=== PATIENT | male | born 1975 | race Caucasian/White ===

== ENCOUNTER 2021-09-13 04:17 | Inpatient (IN) ==
[2021-09-13] MEDS ORDERED: FAMOTIDINE 20MG IV PUSH 20 MG/5 ML SYR IV STA (04:31)
[2021-09-13] MEDS ORDERED: ONDANSETRON INJ 2 MG/ML 2 ML VIAL IV STA (04:31)
[2021-09-13] MEDS ORDERED: cefTRIAXone SODIUM 2,000 MG/70 ML BAG IV STA (04:32)
[2021-09-13] MEDS ORDERED: SODIUM CHLORIDE 0.9% 250 ML IV PRN ×7 (04:33→12:39)
--- NOTE | 2021-09-13 04:37 | Emergency Department Note ---
Impression & Plan Acute GI bleeding ADMIT to ICU ED Provider Note HPI: The patient is a 46-year-old male with unknown past medical history, presents emergency department with concern for GI bleeding. Patient arrives via EMS. He is reportedly intoxicated. Patient reportedly was found down in his apartment by his girlfriend, he had been surrounded by dark-colored loose stool, had also had an episode of hematemesis prior to this according to EMS report. On arrival to the ED the patient is alert to verbal stimuli, he does appear intoxicated, he is unable to provide me much history, he is tachypneic but saturating well on room air on arrival. He is noted to be hypotensive on arrival. Per EMS he was in the 80s systolic, he was given about a 500 cc bolus of normal saline prior to ar rival to the ED. ROS: -GI: Concern for GI bleed -Neuro: Altered mental status -MSK: Reported fall, unwitnessed *10 point review systems was conducted and is otherwise negative unless stated above *Outpatient medications and allergy history reviewed PE: General: Alert to verbal stimuli, patient is cool to the touch, disheveled appearing HEENT: Normocephalic, there is dried blood within the oral cavity, dried blood at the bilateral naris without any evidence of active bleeding Eyes: Extraocular eye movement is intact, no scleral erythema, there is scleral icterus bilaterally Pulmonary: Clear to auscultation bilaterally, no wheezing, there is tachypnea Cardio: Regular rate and rhythm GI: Abdomen is soft, nontender, abdomen is distended : No suprapubic tenderness MSK: No evidence of trauma or malformation of the extremities, no edema Skin: No evidence of rash, slight jaundiced appearance Neuro: Alert to verbal stimuli, no focal deficits Psychiatric: N/A pediatric speech therapist: - An order was placed for continuous cardiac monitoring. - Patient was noted to be in sinus rhythm with rate of 90. EKG: Rate: 96 Rhythm: Normal sinus rhythm Intervals: QTC 565 ms, QRS 102 ms, MD interval [address] changes: No ST elevation Time: 0439 Endotracheal intubation: Rapid sequence intubation medications: Etomidate, succinylcholine Utilizing glide scope sized [3] glide scope blade was advanced to the vallecula with visualization of the vocal cords. Moderate amount of blood is noted to be pooling inferiorly within the oropharynx. Size [7.5] endotracheal tube was advanced utilizing glide scope stylette and passed through the vocal cords under direct visualization. ET tube balloon was inflated. Appropriate color change was achieved with capnography. Breath sounds auscultated bilaterally following placement of the ET tube. Chest x-ray was ordered, confirms appropriate placement of endotracheal tube. Central line placement: Consent: Emergent Site to the right femoral vein was sterilely prepped and draped. Under ultrasound guidance utilizing sterile technique the deep vein was identified, needle was advanced with flash of dark venous, nonpulsatile, blood achieved. Guidewire was advanced through the needle, needle was subsequently removed. Dilator was placed over the guidewire and then subsequently removed under direct pressure. Triple-lumen central venous catheter was then threaded over the guidewire. Guidewire was subsequently withdrawn. All 3 ports of the triple-lumen catheter were flushed with normal saline with appropriate return of dark venous blood through all 3 ports. Catheter was secured in place utilizing sutures. Patient tolerated the procedure well Medical Decision Making: Patient presented to the emergency department with altered mental status, he was found down earlier this evening by his girlfriend. I did speak with his girlfriend, Margo, on the phone, she tells me that the patient went to bed around 10 PM, at which time he was in his normal state of health. The patient's girlfriend then tells me that the patient apparently fell down, this was unwitnessed, she heard him in the hallway and then went out to find him covered in dark stool, there was some blood surrounding him as well. He seemed altered and was not making sense and therefore she contacted EMS for transport to the ED. On arrival to the ED the patient is hypotensive, he is able to speak to me but he is confused. He does not exhibit any focal deficits. He has dried blood in the mouth and then the bilateral naris. He is saturating well on room air on arrival. Given hypotension large-bore access was obtained bilaterally, patient was initiated on IV fluid boluses, lab work-up initiated, CT imaging of the head as well as CT imaging of the chest, abdomen, and pelvis are ordered. Patient is significantly hypotensive in the 50s systolic and therefore type O- blood was ordered via phone call to the lab for emergent transfer. Lab work was obtained and does show evidence of anemia of 9.8, multiple metabolic derangements including lactic acid greater than 16, bilirubin greater than 14, AST of 17,000, sodium of 120. Troponin is also elevated at 0.33, EKG shows some mild ST depression in leads V2 and V3 without evidence of ST elevation. I suspect this is demand ischemia in the setting of upper GI bleed, will hold off on any aspirin or heparin therapy at this time given the patient's acute bleeding. Patient was ordered 4 units packed red blood cells, FFP, o ctreotide bolus and drip, Protonix bolus and drip, 2 g of IV ceftriaxone. Given the uncertain nature of the patient's fall, CT imaging of the head as well as the abdomen and pelvis and chest were ordered to rule out traumatic pathology, CT imaging of the head does not show any evidence of intracranial bleeding, CT imaging of the chest does not show any evidence of fractures or pneumothorax. CT imaging of the abdomen pelvis showed some distention of the stomach and of the large bowel that appears fluid-filled. I suspect this is likely hemorrhage. While in the ED right femoral triple-lumen catheter was established for access given multiple medications/drips, please see procedure note for details. The patient was transported back from [place] he became increasingly altered, breathing became agonal, patient's saturations dropped into the 70s and therefore intubation was performed emergently. Please see procedure note for details. I did discuss the case twice via phone call with Dr. Hernandez of on-call gastroenterology for unassigned, he was made aware of the unstable nature of the patient, states that resuscitation should be continued and he will plan for endoscopy urgently. Hospitalist service for [facility] group was consulted from the ED for admission to the ICU, case was also discussed with the ICU attending, Dr. Schaefer, he was updated and aware of the admission and did evaluate the patient at the bedside in the ED. I was able to contact the patient's girlfriend again who he lives with here locally, Margo Buckley, who was updated and aware of the patient's critical condition and admission. I was also able to speak with the patient's father, Ezequiel Crouch, who was also updated and aware of the patient's critical condition. Relevant phone numbers will be listed below. Margo Buckley (partner, local contact) : [phone] Ezequiel Crouch (Father) : [phone] * CRITICAL CARE TIME: ( 55 ) minutes -Time spent independent of procedures in stabilization of acute upper GI bleed requiring multiple units of packed red blood cells for hypotension and active GI bleeding, initiation of multiple drips including octreotide, Protonix, initiation of IV antibiotics for upper GI bleeding, discussion with other physicians including gastroenterology and intensive care, range of motion Diagnosis: 1. Acute upper GI bleed 2. Altered mental status 3. lactic acidosis 4. respiratory failure 5. Anemia 6. Hyponatremia Disposition: Admission to ICU Bebeto Barker DO Emergency Medicine Past Med/Surg History Social History Smoking Status: Current some day smoker Preferred Language: Danish Feels Safe at Home: Yes Results & Data (ED) Vital Signs Vital Signs - 24 hr 09/13/21 04:21 09/13/21 04:31 09/13/21 04:36 Temperature 34.9 C L Temperature Source Rectal Pulse Rate 92 H 99 H 95 H Pulse Rate from SpO2 Sensor 99 H 95 H Pulse Rhythm Regular Pulse Strength Normal Respiratory Rate 33 H 26 H 31 H Respiratory Effort / Characteristics Spontaneous Grunting Respiratory Depth Normal Respiratory Pattern Tachypnea Blood Pressure 51/40 L 55/35 L 63/37 L Blood Pressure Mean 43 41 45 Blood Pressure Position Lying Pulse Oximetry 90 95 93 Oxygen Delivery Method Room Air Room Air Room Air Oxygen Flow Rate Fraction of Inspired Oxygen Sepsis Recent Fever Within 48 Hours No Sepsis New/Unexplained Change in Mental Status N/A Sepsis Action Taken by Nursing Physician Notified Arterial BP Systolic Arterial BP Diastolic Arterial BP Mean Arterial Pulse Rate End-Tidal CO2 09/13/21 04:40 09/13/21 04:45 09/13/21 04:53 Temperature Temperature Source Pulse Rate 96 H 98 H 100 H Pulse Rate from SpO2 Sensor 96 H 99 H 100 H Pulse Rhythm Pulse Strength Respiratory Rate 28 H 34 H 36 H Respiratory Effort / Characteristics Respiratory Depth Respiratory Pattern Blood Pressure 73/34 L 69/37 L 78/45 L Blood Pressure Mean 47 47 56 Blood Pressure Position Pulse Oximetry 91 93 94 Oxygen Delivery Method Room Air Room Air Room Air Oxygen Flow Rate Fraction of Inspired Oxygen Sepsis Recent Fever Within 48 Hours Sepsis New/Unexplained Change in Mental Status Sepsis Action Taken by Nursing Arterial BP Systolic Arterial BP Diastolic Arterial BP Mean Arterial Pulse Rate End-Tidal CO2 09/13/21 04:55 09/13/21 05:01 09/13/21 05:06 Temperature 34.9 C L Temperature Source Rectal Pulse Rate 97 H 98 H 96 H Pulse Rate from SpO2 Sensor 96 H 98 H Pulse Rhythm Regular Regular Pulse Strength Normal Respiratory Rate 31 H 28 H 30 H Respiratory Effort / Characteristics Respiratory Depth Respiratory Pattern Blood Pressure 83/32 L 84/39 L Blood Pressure Mean 49 54 Blood Pressure Position Lying Pulse Oximetry 94 94 94 Oxygen Delivery Method Room Air Room Air Oxygen Flow Rate 0 Fraction of Inspired Oxygen Sepsis Recent Fever Within 48 Hours Sepsis New/Unexplained Change in Mental Status Sepsis Action Taken by Nursing Arterial BP Systolic Arterial BP Diastolic Arterial BP Mean Arterial Pulse Rate End-Tidal CO2 09/13/21 05:34 09/13/21 05:35 09/13/21 05:37 Temperature Temperature Source Pulse Rate 93 H 93 H 93 H Pulse Rate from SpO2 Sensor 93 H 95 H Pulse Rhythm Pulse Strength Respiratory Rate 25 H 23 24 Respiratory Effort / Characteristics Respiratory Depth Respiratory Pattern Blood Pressure 73/41 L 76/35 L 76/35 L Blood Pressure Mean 51 48 48 Blood Pressure Position Pulse Oximetry 94 99 99 Oxygen Delivery Method Mechanical Vent Mechanical Vent Oxygen Flow Rate Fraction of Inspired Oxygen Sepsis Recent Fever Within 48 Hours Sepsis New/Unexplained Change in Mental Status Sepsis Action Taken by Nursing Arterial BP Systolic Arterial BP Diastolic Arterial BP Mean Arterial Pulse Rate End-Tidal CO2 09/13/21 05:40 09/13/21 05:45 09/13/21 05:50 Temperature 34.1 C L 34.1 C L Temperature Source Pulse Rate 94 H 96 H 96 H Pulse Rate from SpO2 Sensor 94 H 96 H 96 H Pulse Rhythm Pulse Strength Respiratory Rate 20 18 20 Respiratory Effort / Characteristics Respiratory Depth Respiratory Pattern Blood Pressure 93/53 L 98/45 L 113/67 Blood Pressure Mean 66 62 82 Blood Pressure Position Pulse Oximetry 96 93 96 Oxygen Delivery Method Mechanical Vent Mechanical Vent Oxygen Flow Rate Fraction of Inspired Oxygen 80 Sepsis Recent Fever Within 48 Hours Sepsis New/Unexplained Change in Mental Status Sepsis Action Taken by Nursing Arterial BP Systolic Arterial BP Diastolic Arterial BP Mean Arterial Pulse Rate End-Tidal CO2 35 38 39 09/13/21 05:55 09/13/21 06:01 09/13/21 06:05 Temperature 34.1 C L 34.0 C L 34.0 C L Temperature Source Pulse Rate 96 H 100 H 102 H Pulse Rate from SpO2 Sensor 97 H 101 H 102 H Pulse Rhythm Pulse Strength Respiratory Rate 20 20 23 Respiratory Effort / Characteristics Respiratory Depth Respiratory Pattern Blood Pressure 96/56 L 96/46 L 88/49 L Blood Pressure Mean 69 62 62 Blood Pressure Position Pulse Oximetry 97 99 99 Oxygen Delivery Method Oxygen Flow Rate Fraction of Inspired Oxygen Sepsis Recent Fever Within 48 Hours Sepsis New/Unexplained Change in Mental Status Sepsis Action Taken by Nursing Arterial BP Systolic Arterial BP Diastolic Arterial BP Mean Arterial Pulse Rate End-Tidal CO2 37 39 34 09/13/21 06:10 09/13/21 06:12 09/13/21 06:15 Temperature 34.1 C L 34.1 C L 34.1 C L Temperature Source Pulse Rate 101 H 101 H 100 H Pulse Rate from SpO2 Sensor 102 H 101 H 101 H Pulse Rhythm Pulse Strength Respiratory Rate 25 H 25 H 25 H Respiratory Effort / Characteristics Respiratory Depth Respiratory Pattern Blood Pressure 83/49 L 75/43 L 81/39 L Blood Pressure Mean 60 53 53 Blood Pressure Position Pulse Oximetry 100 100 100 Oxygen Delivery Method Oxygen Flow Rate Fraction of Inspired Oxygen Sepsis Recent Fever Within 48 Hours Sepsis New/Unexplained Change in Mental Status Sepsis Action Taken by Nursing Arterial BP Systolic Arterial BP Diastolic Arterial BP Mean Arterial Pulse Rate End-Tidal CO2 32 30 30 09/13/21 06:20 09/13/21 06:25 09/13/21 06:30 Temperature 34.2 C L 34.2 C L 34.3 C L Temperature Source Pulse Rate 99 H 99 H 99 H Pulse Rate from SpO2 Sensor 100 H 99 H 99 H Pulse Rhythm Pulse Strength Respiratory Rate 25 H 26 H 25 H Respiratory Effort / Characteristics Respiratory Depth Respiratory Pattern Blood Pressure 82/43 L 78/51 L 79/50 L Blood Pressure Mean 56 60 59 Blood Pressure Position Pulse Oximetry 100 100 100 Oxygen Delivery Method Oxygen Flow Rate Fraction of Inspired Oxygen Sepsis Recent Fever Within 48 Hours Sepsis New/Unexplained Change in Mental Status Sepsis Action Taken by Nursing Arterial BP Systolic Arterial BP Diastolic Arterial BP Mean Arterial Pulse Rate End-Tidal CO2 30 28 29 09/13/21 06:31 09/13/21 06:35 09/13/21 06:40 Temperature 34.3 C L 34.4 C L 34.4 C L Temperature Source Bower Cath ( Temp Sensing) Pulse Rate 99 H 99 H 98 H Pulse Rate from SpO2 Sensor 99 H 99 H Pulse Rhythm Pulse Strength Respiratory Rate 24 28 H 26 H Respiratory Effort / Characteristics Respiratory Depth Respiratory Pattern Blood Pressure 79/50 L 88/41 L 97/53 L Blood Pressure Mean 59 56 67 Blood Pressure Position Pulse Oximetry 100 100 99 Oxygen Delivery Method Mechanical Vent Mechanical Vent Oxygen Flow Rate Fraction of Inspired Oxygen Sepsis Recent Fever Within 48 Hours Sepsis New/Unexplained Change in Mental Status Sepsis Action Taken by Nursing Arterial BP Systolic Arterial BP Diastolic Arterial BP Mean Arterial Pulse Rate End-Tidal CO2 29 29 09/13/21 06:45 09/13/21 06:50 09/13/21 06:54 Temperature 34.5 C L 34.5 C L Temperature Source Pulse Rate 100 H 100 H 99 H Pulse Rate from SpO2 Sensor 99 H 100 H Pulse Rhythm Pulse Strength Respiratory Rate 25 H 27 H 24 Respiratory Effort / Characteristics Respiratory Depth Respiratory Pattern Blood Pressure 90/46 L 96/51 L 96/51 L Blood Pressure Mean 60 66 66 Blood Pressure Position Pulse Oximetry 97 98 98 Oxygen Delivery Method Mechanical Vent Oxygen Flow Rate Fraction of Inspired Oxygen Sepsis Recent Fever Within 48 Hours Sepsis New/Unexplained Change in Mental Status Sepsis Action Taken by Nursing Arterial BP Systolic Arterial BP Diastolic Arterial BP Mean Arterial Pulse Rate End-Tidal CO2 31 32 09/13/21 06:55 09/13/21 07:00 09/13/21 07:05 Temperature 34.6 C L 34.6 C L 34.5 C L Temperature Source Pulse Rate 100 H 99 H 98 H Pulse Rate from SpO2 Sensor 100 H 100 H 98 H Pulse Rhythm Pulse Strength Respiratory Rate 29 H 29 H 30 H Respiratory Effort / Characteristics Respiratory Depth Respiratory Pattern Blood Pressure 88/45 L 89/44 L 88/44 L Blood Pressure Mean 59 59 58 Blood Pressure Position Pulse Oximetry 99 99 99 Oxygen Delivery Method Room Air Oxygen Flow Rate Fraction of Inspired Oxygen Sepsis Recent Fever Within 48 Hours Sepsis New/Unexplained Change in Mental Status Sepsis Action Taken by Nursing Arterial BP Systolic 83 81 83 Arterial BP Diastolic 38 39 35 Arterial BP Mean 50 50 48 Arterial Pulse Rate 99 H 112 H 98 H End-Tidal CO2 29 29 28 Laboratory Data Result diagrams: 09/13/21 04:31 09/13/21 04:31 Lab Results 09/13/21 09/13/21 09/13/21 Range/Units 04:31 04:31 04:31 WBC 9.40 (4.8-10.8) K/uL RBC 2.75 L (4.7-6.1) M/uL Hgb 9.8 L (14.0-18.0) g/dL Hct 29.1 L (42-52) % MCV 105.8 H (80-100) fL MCH 35.6 H (25-34) pg MCHC 33.7 (32-36) g/dL RDW Std Deviation 61.8 H (36.4-46.3) fL RDW Coeff of Federico 16.5 H (11.5-14.5) % Plt Count 121 L (130-400) K/uL MPV 12.3 H (7.4-10.4) fL Immature Gran % (Auto) 0.6 % Neut % (Auto) 69.9 % Lymph % (Auto) 19.8 % [place] % (Auto) 9.1 % Eos % (Auto) 0.5 % Baso % (Auto) 0.1 % Neut # (Auto) 6.56 H (1.4-6.5) K/uL Lymph # (Auto) 1.86 (1.2-3.4) K/uL [place] # (Auto) 0.86 H (0.11-0.59) K/uL Eos # (Auto) 0.05 (0-0.5) K/uL Baso # (Auto) 0.01 (0-0.2) K/uL Immature Gran # (Auto) 0.06 H (0.00-0.02) K/uL Absolute Nucleated RBC 0.05 H (0-0) K/uL Nucleated RBC % (auto) 0.5 % Platelet Estimate Decreased L (Normal) Espinosa-Maria Stein Bodies 1+ Echinocytes 1+ PT 35.7 H (9.0-12.0) Seconds INR 3.9 H (0.9-1.1) APTT 47.6 H* (21.0-31.0) Seconds PTT Ratio 1.8 Sodium (136-145) mmol/L Potassium (3.5-5.1) mmol/L Chloride (98-107) mmol/L Carbon Dioxide (21-32) mmol/L Anion Gap BUN (6-23) mg/dl Creatinine (0.6-1.4) mg/dl Est Cr Clr Drug Dosing Est GFR ( Amer) Est GFR (Non-Af Amer) BUN/Creatinine Ratio Glucose (70-99(Fasting)) mg/dl Lactate (0.4-2.0) mmol/L Calcium (8.5-10.1) mg/dl Total Bilirubin (0.2-1.0) mg/dl AST (13-39) U/L ALT (7-52) U/L Alkaline Phosphatase (34-104) U/L Total Creatine Kinase (30-223) U/L Troponin I (0-0.04) ng/ml Total Protein (6.0-8.3) gm/dl Albumin (3.4-5.0) gm/dl Globulin (2.5-4.0) gm/dl Albumin/Globulin Ratio (0.9-2) Lipase (11-82) U/L Procalcitonin (0-0.5) ng/ml POC Stool Occult Blood (Negative) Acetaminophen (10-30) ug/ml Ethyl Alcohol mg/dL (<10.0) mg/dl SARS-CoV-2, RNA, NAAT (NEGATIVE) Blood Type A Negative Blood Type Recheck Antibody Screen NEGATIVE Crossmatch See Detail 09/13/21 09/13/21 09/13/21 Range/Units 04:31 04:31 04:31 WBC (4.8-10.8) K/uL RBC (4.7-6.1) M/uL Hgb (14.0-18.0) g/dL Hct (42-52) % MCV (80-100) fL MCH (25-34) pg MCHC (32-36) g/dL RDW Std Deviation (36.4-46.3) fL RDW Coeff of Federico (11.5-14.5) % Plt Count (130-400) K/uL MPV (7.4-10.4) fL Immature Gran % (Auto) % Neut % (Auto) % Lymph % (Auto) % [place] % (Auto) % Eos % (Auto) % Baso % (Auto) % Neut # (Auto) (1.4-6.5) K/uL Lymph # (Auto) (1.2-3.4) K/uL [place] # (Auto) (0.11-0.59) K/uL Eos # (Auto) (0-0.5) K/uL Baso # (Auto) (0-0.2) K/uL Immature Gran # (Auto) (0.00-0.02) K/uL Absolute Nucleated RBC (0-0) K/uL Nucleated RBC % (auto) % Platelet Estimate (Normal) Espinosa-Maria Stein Bodies Echinocytes PT (9.0-12.0) Seconds INR (0.9-1.1) APTT (21.0-31.0) Seconds PTT Ratio Sodium 120 L (136-145) mmol/L Potassium 3.5 (3.5-5.1) mmol/L Chloride 79 L (98-107) mmol/L Carbon Dioxide (21-32) mmol/L Anion Gap TNP BUN 19 (6-23) mg/dl Creatinine (0.6-1.4) mg/dl Est Cr Clr Drug Dosing TNP Est GFR ( Amer) TNP Est GFR (Non-Af Amer) TNP BUN/Creatinine Ratio TNP Glucose 133 H (70-99(Fasting)) mg/dl Lactate (0.4-2.0) mmol/L Calcium 8.3 L (8.5-10.1) mg/dl Total Bilirubin 14.3 H (0.2-1.0) mg/dl AST 1731 H (13-39) U/L ALT 547 H (7-52) U/L Alkaline Phosphatase 135 H (34-104) U/L Total Creatine Kinase 1164 H (30-223) U/L Troponin I 0.33 H* (0-0.04) ng/ml Total Protein 5.0 L (6.0-8.3) gm/dl Albumin 2.2 L (3.4-5.0) gm/dl Globulin 2.8 (2.5-4.0) gm/dl Albumin/Globulin Ratio 0.8 L (0.9-2) Lipase (11-82) U/L Procalcitonin (0-0.5) ng/ml POC Stool Occult Blood (Negative) Acetaminophen (10-30) ug/ml Ethyl Alcohol mg/dL 57.7 H (<10.0) mg/dl SARS-CoV-2, RNA, NAAT (NEGATIVE) Blood Type Blood Type Recheck Antibody Screen Crossmatch 09/13/21 09/13/21 09/13/21 Range/Units 04:38 04:40 04:40 WBC (4.8-10.8) K/uL RBC (4.7-6.1) M/uL Hgb (14.0-18.0) g/dL Hct (42-52) % MCV (80-100) fL MCH (25-34) pg MCHC (32-36) g/dL RDW Std Deviation (36.4-46.3) fL RDW Coeff of Federico (11.5-14.5) % Plt Count (130-400) K/uL MPV (7.4-10.4) fL Immature Gran % (Auto) % Neut % (Auto) % Lymph % (Auto) % [place] % (Auto) % Eos % (Auto) % Baso % (Auto) % Neut # (Auto) (1.4-6.5) K/uL Lymph # (Auto) (1.2-3.4) K/uL [place] # (Auto) (0.11-0.59) K/uL Eos # (Auto) (0-0.5) K/uL Baso # (Auto) (0-0.2) K/uL Immature Gran # (Auto) (0.00-0.02) K/uL Absolute Nucleated RBC (0-0) K/uL Nucleated RBC % (auto) % Platelet Estimate (Normal) Espinosa-Maria Stein Bodies Echinocytes PT (9.0-12.0) Seconds INR (0.9-1.1) APTT (21.0-31.0) Seconds PTT Ratio Sodium (136-145) mmol/L Potassium (3.5-5.1) mmol/L Chloride (98-107) mmol/L Carbon Dioxide (21-32) mmol/L Anion Gap BUN (6-23) mg/dl Creatinine (0.6-1.4) mg/dl Est Cr Clr Drug Dosing Est GFR ( Amer) Est GFR (Non-Af Amer) BUN/Creatinine Ratio Glucose (70-99(Fasting)) mg/dl Lactate (0.4-2.0) mmol/L Calcium (8.5-10.1) mg/dl Total Bilirubin (0.2-1.0) mg/dl AST (13-39) U/L ALT (7-52) U/L Alkaline Phosphatase (34-104) U/L Total Creatine Kinase (30-223) U/L Troponin I (0-0.04) ng/ml Total Protein (6.0-8.3) gm/dl Albumin (3.4-5.0) gm/dl Globulin (2.5-4.0) gm/dl Albumin/Globulin Ratio (0.9-2) Lipase (11-82) U/L Procalcitonin 0.33 (0-0.5) ng/ml POC Stool Occult Blood (Negative) Acetaminophen < 3 L (10-30) ug/ml Ethyl Alcohol mg/dL (<10.0) mg/dl SARS-CoV-2, RNA, NAAT NEGATIVE (NEGATIVE) Blood Type Blood Type Recheck Antibody Screen Crossmatch 09/13/21 09/13/21 09/13/21 Range/Units 05:04 05:04 Unknown WBC (4.8-10.8) K/uL RBC (4.7-6.1) M/uL Hgb (14.0-18.0) g/dL Hct (42-52) % MCV (80-100) fL MCH (25-34) pg MCHC (32-36) g/dL RDW Std Deviation (36.4-46.3) fL RDW Coeff of Federico (11.5-14.5) % Plt Count (130-400) K/uL MPV (7.4-10.4) fL Immature Gran % (Auto) % Neut % (Auto) % Lymph % (Auto) % [place] % (Auto) % Eos % (Auto) % Baso % (Auto) % Neut # (Auto) (1.4-6.5) K/uL Lymph # (Auto) (1.2-3.4) K/uL [place] # (Auto) (0.11-0.59) K/uL Eos # (Auto) (0-0.5) K/uL Baso # (Auto) (0-0.2) K/uL Immature Gran # (Auto) (0.00-0.02) K/uL Absolute Nucleated RBC (0-0) K/uL Nucleated RBC % (auto) % Platelet Estimate (Normal) Espinosa-Maria Stein Bodies Echinocytes PT (9.0-12.0) Seconds INR (0.9-1.1) APTT (21.0-31.0) Seconds PTT Ratio Sodium (136-145) mmol/L Potassium (3.5-5.1) mmol/L Chloride (98-107) mmol/L Carbon Dioxide (21-32) mmol/L Anion Gap BUN (6-23) mg/dl Creatinine (0.6-1.4) mg/dl Est Cr Clr Drug Dosing Est GFR ( Amer) Est GFR (Non-Af Amer) BUN/Creatinine Ratio Glucose (70-99(Fasting)) mg/dl Lactate 16.1 H* (0.4-2.0) mmol/L Calcium (8.5-10.1) mg/dl Total Bilirubin (0.2-1.0) mg/dl AST (13-39) U/L ALT (7-52) U/L Alkaline Phosphatase (34-104) U/L Total Creatine Kinase (30-223) U/L Troponin I (0-0.04) ng/ml Total Protein (6.0-8.3) gm/dl Albumin (3.4-5.0) gm/dl Globulin (2.5-4.0) gm/dl Albumin/Globulin Ratio (0.9-2) Lipase (11-82) U/L Procalcitonin (0-0.5) ng/ml POC Stool Occult Blood Positive A (Negative) Acetaminophen (10-30) ug/ml Ethyl Alcohol mg/dL (<10.0) mg/dl SARS-CoV-2, RNA, NAAT (NEGATIVE) Blood Type Blood Type Recheck A Negative Antibody Screen Crossmatch Administered Medications Pantoprazole Sodium 40 mg/ (Dextrose) 100 mls @ 20 mls/hr IV Q5H SUSAN Stop: 09/13/21 09:44 Last Admin: 09/13/21 06:17 Dose: 8 mg/hr, 20 mls/hr Documented by: [id number] Octreotide Acetate 500 mcg/ (Dextrose) 105 mls @ 10.5 mls/hr IV .Q10H SUSAN Stop: 10/13/21 05:14 Last Infusion: 09/13/21 07:13 Dose: 50 mcg/hr, 10.5 mls/hr Documented by: [id number] Infusion: 09/13/21 06:23 Dose: 0 mcg/hr, 0 mls/hr Documented by: [id number] Admin: 09/13/21 05:43 Dose: 50 mcg/hr, 10.5 mls/hr Documented by: [id number] Propofol (Diprivan) 1,000 mg in 100 mls @ 10.116 mls/hr IV .Q9H54M [facility]; Protocol Stop: 09/16/21 05:59 Last Admin: 09/13/21 05:59 Dose: 5 mcg/kg/min, 2.5 mls/hr Documented by: [id number] Cosigned by: [id number] Propofol (Propofol Bolus From Bag) 20 mg IV Q5M PRN PRN Reason: Sedation Stop: 09/16/21 05:56 Last Admin: 09/13/21 05:59 Dose: 20 mg Documented by: [id number] Cosigned by: [id number] Discontinued Medications Sodium Chloride (Nss 1000ml) 2,000 mls @ 999 mls/hr IV .Q2H1M [facility] Stop: 09/13/21 06:45 Last Infusion: 09/13/21 06:26 Dose: 0 mls/hr Documented by: [id number] Admin: 09/13/21 04:25 Dose: 999 mls/hr Documented by: [id number] Famotidine (Pepcid 20mg Iv Push) 20 mg in 5 mls @ 2.5 mls/min IV NOW STA Stop: 09/13/21 04:32 Last Admin: 09/13/21 04:42 Dose: 2.5 mls/min Documented by: [id number] Ceftriaxone Sodium (Rocephin) 2,000 mg in 70 mls @ 140 mls/hr IV NOW STA Stop: 09/13/21 05:01 Last Infusion: 09/13/21 05:19 Dose: 0 mls/hr Documented by: [id number] Admin: 09/13/21 04:49 Dose: 140 mls/hr Documented by: [id number] Octreotide Acetate 50 mcg/ (Syringe) 10 mls @ 3 mls/min IV ONE STA Stop: 09/13/21 05:18 Last Admin: 09/13/21 05:43 Dose: 3 mls/min Documented by: [id number] Pantoprazole Sodium 40 mg/ (Syringe) 10 mls @ 5 mls/min IV NOW ONE Stop: 09/13/21 06:12 Last Admin: 09/13/21 07:01 Dose: 5 mls/min Documented by: [id number] Phytonadione 10 mg/ Sodium (Chloride) 51 mls @ 102 mls/hr IV ONE ONE Stop: 09/13/21 07:04 Last Admin: 09/13/21 07:02 Dose: 102 mls/hr Documented by: [id number] Miscellaneous (Stat Iv) 1 ea N/A NOW STA Stop: 09/13/21 05:16 Last Admin: 09/13/21 06:18 Dose: Not Given Documented by: [id number] Ondansetron HCl (Ondansetron Inj 2 Mg/Ml 2 Ml Vial) 4 mg IV ONE STA Stop: 09/13/21 04:32 Last Admin: 09/13/21 04:42 Dose: 4 mg Documented by: [id number] Propofol (Propofol Iv Emulsion 10 Mg/Ml 20 Ml Vial) Confirm Administered Dose 200 mg IV .STK-MED ONE Stop: 09/13/21 05:37 Last Admin: 09/13/21 06:00 Dose: Not Given Documented by: [id number] Propofol (Propofol Iv Emulsion 10 Mg/Ml 100 Ml Vial) Confirm Administered Dose 1,000 mg IV .STK-MED ONE Stop: 09/13/21 05:38 Last Admin: 09/13/21 06:00 Dose: Not Given Documented by: [id number] Imaging Data Radiologist's Impression: Head CT 09/13/21 04:45 CT SCAN OF THE BRAIN WITHOUT IV CONTRAST CLINICAL HISTORY: Fall. Intoxication. COMPARISON STUDY: No priors. TECHNIQUE: Unenhanced axial CT scan of the brain is performed from the vertex to the skull base. A dose lowering technique was utilized adhering to the principles of ALARA. The patient was scanned twice due to motion artifact. CT DOSE: 5874.32 mGy.cm FINDINGS: Brain parenchyma: The brain parenchyma is normal in appearance. There is no hemorrhage, mass effect, or evidence of acute territorial ischemia by CT criteria. Cherry-white matter differentiation is preserved. No extra-axial fluid collection is seen. Ventricles, sulci, cisterns: Normal in configuration. Intracranial vasculature: The visualized intracranial vasculature at the skull base is normal in appearance. Calvarium: There is no depressed calvarial fracture. Sinuses and mastoids: There is mild to moderate mucosal thickening with an air- fluid level in the right maxillary antrum. Mucosal thickening is also seen within the right frontal and right ethmoid sinuses. The mastoid air cells are well pneumatized. Orbits: The bony orbits are grossly intact. IMPRESSION: No acute intracranial abnormality. ACT 112: Negative or not required by law. Electronically signed by: Avila Davison M.D. 09/13/2021 7:06 AM Abdomen/Pelvis CT 09/13/21 04:47 CT OF THE ABDOMEN AND PELVIS WITH CONTRAST CLINICAL HISTORY: GI bleed. Fall. Altered mental status. COMPARISON STUDY: None. TECHNIQUE: Following IV administration of 94 mL of Optiray, axial images of the abdomen and pelvis were obtained from the lung bases to the proximal femurs. Images were reviewed in the axial, sagittal, and coronal planes. IV contrast was administered without complication. Automated exposure control was utilized for the study. A dose lowering technique was utilized adhering to the principles o f ALARA. FINDINGS: No pneumatosis, free air or portal venous gas is present. The stomach is fluid-filled and distended as is visualized portions of the distal esophagus. There is no evidence for a small or large bowel obstruction. There is mild rectal wall thickening. Marked hepatic steatosis is noted. There is hepatomegaly. The liver is heterogeneous. The main, left and right portal veins are patent. There is no biliary or pancreatic ductal dilatation. A gallstone within the gallbladder is noted. Gallbladder wall thickening is a nonspecific finding. Size of the spleen is normal. Moderate ascites is present. There are small varices within the abdomen and pelvis. The adrenal glands, kidneys and pancreas are unremarkable. No hydronephrosis is present. Major vasculature is patent. A Bower balloon within the bladder is noted. No acute fracture is identified within visualized skeletal structures. 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 IMPRESSION: 1. Marked hepatic steatosis. Hepatomegaly and heterogeneous liver parenchyma. Suspected cirrhosis with sequela of portal hypertension including moderate ascites and varices formation. 2. Fluid-filled distended stomach and distal esophagus. No small or large bowel obstruction. Mild rectal wall thickening, a nonspecific finding. 3. No acute traumatic findings within the abdomen or pelvis. 4. Cholelithiasis. Gallbladder wall thickening, a nonspecific finding in the setting of liver disease. 5. Avascular necrosis of the femoral heads. ACT 112: Negative or not required by law. Electronically signed by: Jeyson Carr M.D. 09/13/2021 6:[address] 09/13/21 04:47 CT OF THE CHEST WITH IV CONTRAST CLINICAL HISTORY: Fall. Altered mental status. COMPARISON STUDY: No previous studies for comparison. TECHNIQUE: Following IV administration of 94 mL of Optiray, helical axial images of the chest were obtained. Sagittal and coronal reconstructions were viewed as well as maximal intensity projections on an independent 3-D workstation. Automated exposure control was utilized for the study. A dose lowering technique was utilized adhering to the principles of ALARA. FINDINGS: There is no evidence for traumatic injury to the thoracic aorta. Mild cardiomegaly is noted. There is no pericardial effusion. There is no pneumothorax. Trace left pleural effusion is present. The stomach and esophagus are distended and fluid-filled. No enlarged thoracic lymph nodes are present. Th ere is no mediastinal hematoma. This exam is compromised by motion artifact. This decreases sensitivity for detection of acute rib fractures but none are identified. Old, healed fracture of the right sixth rib. No acute thoracic spine fracture is noted. Abdomen and pelvis will be reported separately. There is marked hepatic steatosis. There may be a small contusion of the left anterior inferior chest wall. IMPRESSION: 1. Exam compromised by motion artifact. Suspected small contusion of the left anterior-inferior chest wall. No additional acute traumatic findings within the chest. 2. Mild cardiomegaly. 3. Marked hepatic steatosis, better depicted on the CT of the abdomen and pelvis will be reported separately. 4. Fluid-filled distended stomach and esophagus. 5. Trace left pleural effusion. No pneumothorax. ACT 112: Negative or not required by law. Electronically signed by: Jeyson Carr M.D. 09/13/2021 6:37 AM Chest X-Ray 09/13/21 05:43 XR chest 1V portable CLINICAL HISTORY: s/p intubation COMPARISON STUDY: Chest CT performed earlier today. FINDINGS: Tip of endotracheal tube 5.2 cm above the abner. There is no pneumothorax or pleural effusion. Minimal left basilar opacity favors atelectasis. There may be pulmonary vascular congestion. Cardiomegaly is noted. Oral right sixth rib fracture is incidentally noted. IMPRESSION: 1. Tip of endotracheal tube 5.2 cm above the abner. 2. Cardiomegaly. Pulmonary vascular congestion without overt pulmonary edema. 3. Mild left basilar opacity which favors atelectasis. ACT 112: Negative or not required by law. Electronically signed by: Jeyson Carr M.D. 09/13/2021 6:29 AM Discharge Plan Visit Data Chief Complaint: GI Bleed Stated Complaint: GENERAL ILLNESS ED Provider: Bebeto Barker Discharge Problem: Acute GI bleeding Discharge Instructions Interventions: ED Discharge Assessment Last Done: 09/13/21 07:15 Forms Stand Alone Forms: [facility] Referrals Referrals: PCP,NO [Primary Care Provider] -
[2021-09-13] MEDS ORDERED: PANTOprazole 40 MG in DEXTROSE 5% 100 ML IV SCH (04:45)
[2021-09-13] MEDS ORDERED: SODIUM CHLORIDE 0.9% 1000ML 2,000 ML IV SCH (04:45)
[2021-09-13 04:55] LABS: Hematocrit (blood only) 29.1 % (42-52); Hemoglobin 9.8 g/dL (14.0-18.0); Mean Corpuscular Hemoglobin 35.6 pg (25-34); Mean Corpuscular Hgb Conc 33.7 g/dL (32-36); Mean Corpuscular Volume 105.8 fL (80-100); Mean Platelet Volume 12.3 fL (7.4-10.4); RDW Coefficient of Variation 16.5 % (11.5-14.5); RDW Standard Deviation 61.8 fL (36.4-46.3); Red Blood Count 2.75 M/uL (4.7-6.1)
[2021-09-13 05:01] LABS: Nucleated RBC # (auto) 0.05 K/uL (0-0); Nucleated RBC % (auto) 0.5 %; Platelet Count 121 K/uL (130-400)
[2021-09-13 05:06] LABS: Basophils # (auto) 0.01 K/uL (0-0.2); Basophils % (auto) 0.1 %; Echinocytes 1+; Eosinophils # (auto) 0.05 K/uL (0-0.5); Eosinophils % (auto) 0.5 %; Howell-Jolly Bodies 1+; Immature Granulocytes # (auto) 0.06 K/uL (0.00-0.02); Immature Granulocytes % (auto) 0.6 %; Lymphocytes # (auto) 1.86 K/uL (1.2-3.4); Lymphocytes % (auto) 19.8 %; Monocytes # (auto) 0.86 K/uL (0.11-0.59); Monocytes % (auto) 9.1 %; Neutrophils # (auto) 6.56 K/uL (1.4-6.5); Neutrophils % (auto) 69.9 %; Platelet Estimate Decreased (Normal)
[2021-09-13] MEDS ORDERED: STAT IV STA ×2 (05:15→09:18)
[2021-09-13] MEDS ORDERED: OCTREOTIDE ACETATE 500 MCG in DEXTROSE 5% 100 ML IV SCH (05:15)
[2021-09-13] MEDS ORDERED: OCTREOTIDE ACETATE 50 MCG in SYRINGE 9.5 ML IV STA (05:15)
[2021-09-13 05:16] LABS: INR 3.9 (0.9-1.1); Partial Thromboplastin Ratio 1.8; Prothrombin Time 35.7 Seconds (9.0-12.0)
[2021-09-13 05:20] LABS: Partial Thromboplastin Time 47.6 Seconds (21.0-31.0)
[2021-09-13] MEDS ORDERED: RAPID SEQUENCE INDUCTION BAG ONE (05:27)
[2021-09-13] MEDS ORDERED: PROPOFOL IV EMULSION 10 MG/ML 20 ML VIAL IV ONE (05:36)
[2021-09-13] MEDS ORDERED: PROPOFOL IV EMULSION 10 MG/ML 100 ML VIAL IV ONE (05:37)
[2021-09-13 05:44] LABS: Alanine Aminotransferase 547 U/L (7-52); Albumin Globulin Ratio 0.8 (0.9-2); Albumin Level 2.2 gm/dl (3.4-5.0); Alkaline Phosphatase 135 U/L (34-104); Aspartate Aminotransferase 1731 U/L (13-39); Bilirubin,Total 14.3 mg/dl (0.2-1.0); Blood Urea Nitrogen 19 mg/dl (6-23); Calcium 8.3 mg/dl (8.5-10.1); Chloride 79 mmol/L (98-107); Globulin 2.8 gm/dl (2.5-4.0); Glucose 133 mg/dl (70-99(Fasting)); Potassium 3.5 mmol/L (3.5-5.1); Sodium 120 mmol/L (136-145)
[2021-09-13 05:45] LABS: Troponin I 0.33 ng/ml (0-0.04)
[2021-09-13] MEDS ORDERED: STAT IV Infusion **Titration per Protocol STA ×3 (05:57→07:03)
[2021-09-13] MEDS ORDERED: PROPOFOL BOLUS FROM BAG IV PRN (05:57)
[2021-09-13] MEDS ORDERED: propofoL 1,000 MG/100 ML VIAL IV SCH (06:00)
[2021-09-13] MEDS ORDERED: PANTOprazole 40 MG in SYRINGE 0 ML IV ONE (06:11)
[2021-09-13] MEDS ORDERED: NOREPINEPHRINE/D5W 8 MG/508 ML IV ONE (06:28)
--- NOTE | 2021-09-13 06:29 | History & Physical Report ---
Date of Service September 13, 2021 Assessment & Plan (1) Alcoholic liver failure: Plan: Alcoholic liver failure/coagulopathy/shock- Intubated for airway protection Admit to intensive care unit Consult station attendant Meld score 35 Admit to stabilize patient and then transfer to tertiary care facility (2) Shock circulatory: Plan: Start patient on Levophed Massive transfusion needed -resuscitate with multiple units of PRBCs and FFP and platelets (3) Coagulopathy: Plan: INR 3.9 As above Reverse with FFP and vitamin K (4) GI bleed: Plan: GI bleed/anemia- Hemoglobin 9.8 upon admission, likely significantly lower H&H every 6 hours Gastroenterology coming in to acutely scope the patient Continue Protonix drip Continue octreotide drip (5) Anemia: Plan: As above (6) Thrombocytopenia: Plan: Will transfuse platelets after resuscitation with PRBCs and FFP (7) Hyponatremia: Plan: Sodium 120 Likely at least in part beer [place] Repeat after resuscitation (8) Lactic acidosis: Plan: Lactic acid 16.1 Repeat after resuscitation (9) Elevated troponin I level: Plan: Troponin 0.33 Likely type II supply demand mismatch Follow serially (10) Lab test negative for COVID-19 virus: Plan: Negative for COVID-19 (11) Admitted to intensive care unit: Plan: Swing Driver consulted, seen in the ED History of Present Illness Chief Complaint: The patient was brought to the emergency department by EMS after found by his girlfriend's apartment to be on the floor and covered with dark-colored stool and intoxicated Primary Care Provider: NO PCP The patient is a 46-year-old male with unknown PMH who was brought to the emergency department due to concerns regarding acute GI bleeding after being found as noted above. The patient initially presented in an intoxicated state, able to respond to verbal stimuli, unable to provide any significant history, a nd found to be hypotensive. By the time of my assessment, the patient already been intubated. Past Med/Surg History Social History Smoking Status: Current some day smoker Preferred Language: Icelandic Feels Safe at Home: Yes Review of Systems Review of Systems: Unobtainable due to endotracheal tube Physical Exam Physical Exam: The patient is intubated and sedated HEENT--PERRL, EOMI, mucous membranes and oropharynx dry. Neck--supple. No JVD. No bruits. Heart--tachycardic Lungs--few coarse breath sounds, on ventilator Abdomen--normal bowel sounds and soft. Distended Extremities--no cyanosis or clubbing. No edema. Dermatologic--skin is dry Neurologic--limited exam on ventilator and sedated Rheumatologic-unable to assess Psychiatric--unable to assess Results & Data Results & Data ([facility]) Vital Signs (Past 12 Hours) Vital Signs Temp Pulse Resp BP Pulse Ox 09/13/21 06:01 34.0 C L 100 H 20 96/46 L 99 09/13/21 05:55 34.1 C L 96 H 20 96/56 L 97 09/13/21 05:50 34.1 C L 96 H 20 113/67 96 09/13/21 05:45 34.1 C L 96 H 18 98/45 L 93 09/13/21 05:40 94 H 20 93/53 L 96 09/13/21 05:37 93 H 24 76/35 L 99 09/13/21 05:35 93 H 23 76/35 L 99 09/13/21 05:34 93 H 25 H 73/41 L 94 09/13/21 05:06 96 H 30 H 94 09/13/21 05:01 98 H 28 H 84/39 L 94 09/13/21 04:55 34.9 C L 97 H 31 H 83/32 L 94 09/13/21 04:53 100 H 36 H 78/45 L 94 09/13/21 04:45 98 H 34 H 69/37 L 93 09/13/21 04:40 96 H 28 H 73/34 L 91 09/13/21 04:36 95 H 31 H 63/37 L 93 09/13/21 04:31 99 H 26 H 55/35 L 95 09/13/21 04:21 34.9 C L 92 H 33 H 51/40 L 90 Laboratory Results Laboratory Results WBC 9.40 K/uL (4.8-10.8) 09/13/21 04:31 RBC 2.75 M/uL (4.7-6.1) L 09/13/21 04:31 Hgb 9.8 g/dL (14.0-18.0) L 09/13/21 04:31 Hct 29.1 % (42-52) L 09/13/21 04:31 MCV 105.8 fL (80-100) H 09/13/21 04:31 MCH 35.6 pg (25-34) H 09/13/21 04:31 MCHC 33.7 g/dL (32-36) 09/13/21 04:31 RDW Std Deviation 61.8 fL (36.4-46.3) H 09/13/21 04:31 RDW Coeff of Federico 16.5 % (11.5-14.5) H 09/13/21 04:31 Plt Count 121 K/uL (130-400) L 09/13/21 04:31 MPV 12.3 fL (7.4-10.4) H 09/13/21 04:31 Immature Gran % (Auto) 0.6 % 09/13/21 04:31 Neut % (Auto) 69.9 % 09/13/21 04:31 Lymph % (Auto) 19.8 % 09/13/21 04:31 Dyer % (Auto) 9.1 % 09/13/21 04:31 Eos % (Auto) 0.5 % 09/13/21 04:31 Baso % (Auto) 0.1 % 09/13/21 04:31 Neut # (Auto) 6.56 K/uL (1.4-6.5) H 09/13/21 04:31 Lymph # (Auto) 1.86 K/uL (1.2-3.4) 09/13/21 04:31 Dyer # (Auto) 0.86 K/uL (0.11-0.59) H 09/13/21 04:31 Eos # (Auto) 0.05 K/uL (0-0.5) 09/13/21 04:31 Baso # (Auto) 0.01 K/uL (0-0.2) 09/13/21 04:31 Immature Gran # (Auto) 0.06 K/uL (0.00-0.02) H 09/13/21 04:31 Absolute Nucleated RBC 0.05 K/uL (0-0) H 09/13/21 04:31 Nucleated RBC % (auto) 0.5 % 09/13/21 04:31 Platelet Estimate Decreased (Normal) L 09/13/21 04:31 Espinosa-Houlton Bodies 1+ 09/13/21 04:31 Echinocytes 1+ 09/13/21 04:31 PT 35.7 Seconds (9.0-12.0) H 09/13/21 04:31 INR 3.9 (0.9-1.1) H 09/13/21 04:31 APTT 47.6 Seconds (21.0-31.0) H* 09/13/21 04:31 PTT Ratio 1.8 09/13/21 04:31 Sodium 120 mmol/L (136-145) L 09/13/21 04:31 Potassium 3.5 mmol/L (3.5-5.1) 09/13/21 04:31 Chloride 79 mmol/L (98-107) L 09/13/21 04:31 Carbon Dioxide mmol/L (21-32) 09/13/21 04:31 Anion Gap TNP 09/13/21 04:31 BUN 19 mg/dl (6-23) 09/13/21 04:31 Creatinine mg/dl (0.6-1.4) 09/13/21 04:31 Est Cr Clr Drug Dosing TNP 09/13/21 04:31 Est GFR ( Amer) TNP 09/13/21 04:31 Est GFR (Non-Af Amer) TNP 09/13/21 04:31 BUN/Creatinine Ratio TNP 09/13/21 04:31 Glucose 133 mg/dl (70-99(Fasting)) H 09/13/21 04:31 Lactate 16.1 mmol/L (0.4-2.0) H* 09/13/21 05:04 Calcium 8.3 mg/dl (8.5-10.1) L 09/13/21 04:31 Total Bilirubin 14.3 mg/dl (0.2-1.0) H 09/13/21 04:31 AST 1731 U/L (13-39) H 09/13/21 04:31 ALT 547 U/L (7-52) H 09/13/21 04:31 Alkaline Phosphatase 135 U/L (34-104) H 09/13/21 04:31 Total Creatine Kinase 1164 U/L (30-223) H 09/13/21 04:31 Troponin I 0.33 ng/ml (0-0.04) H* 09/13/21 04:31 Total Protein 5.0 gm/dl (6.0-8.3) L 09/13/21 04:31 Albumin 2.2 gm/dl (3.4-5.0) L 09/13/21 04:31 Globulin 2.8 gm/dl (2.5-4.0) 09/13/21 04:31 Albumin/Globulin Ratio 0.8 (0.9-2) L 09/13/21 04:31 Lipase U/L (11-82) 09/13/21 04:31 Procalcitonin 0.33 ng/ml (0-0.5) 09/13/21 04:40 POC Stool Occult Blood Positive (Negative) A 09/13/21 Unknown Ethyl Alcohol mg/dL 57.7 mg/dl (<10.0) H 09/13/21 04:31 SARS-CoV-2, RNA, NAAT NEGATIVE (NEGATIVE) 09/13/21 04:38 Blood Type A Negative 09/13/21 04:31 Blood Type Recheck A Negative 09/13/21 05:04 Antibody Screen NEGATIVE 09/13/21 04:31 Crossmatch See Detail 09/13/21 04:[address] 09/13/21 04:47 CT OF THE CHEST WITH IV CONTRAST CLINICAL HISTORY: Fall. Altered mental status. COMPARISON STUDY: No previous studies for comparison. TECHNIQUE: Following IV administration of 94 mL of Optiray, helical axial images of the chest were obtained. Sagittal and coronal reconstructions were viewed as well as maximal intensity projections on an independent 3-D workstation. Automated exposure control was utilized for the study. A dose lowering technique was utilized adhering to the principles of ALARA. FINDINGS: There is no evidence for traumatic injury to the thoracic aorta. Mild cardiomegaly is noted. There is no pericardial effusion. There is no pneumothorax. Trace left pleural effusion is present. The stomach and esophagus are distended and fluid-filled. No enlarged thoracic lymph nodes are present. There is no mediastinal hematoma. This exam is compromised by motion artifact. This decreases sensitivity for detection of acute rib fractures but none are identified. Old, healed fracture of the right sixth rib. No acute thoracic spine fracture is noted. Abdomen and pelvis will be reported separately. There is marked hepatic steatosis. There may be a small contusion of the left anterior inferior chest wall. IMPRESSION: 1. Exam compromised by motion artifact. Suspected small contusion of the left anterior-inferior chest wall. No additional acute traumatic findings within the chest. 2. Mild cardiomegaly. 3. Marked hepatic steatosis, better depicted on the CT of the abdomen and pelvis will be reported separately. 4. Fluid-filled distended stomach and esophagus. 5. Trace left pleural effusion. No pneumothorax. ACT 112: Negative or not required by law. Electronically signed by: Jeyson Carr M.D. 09/13/2021 6:37 AM Chest X-Ray 09/13/21 05:43 XR chest 1V portable CLINICAL HISTORY: s/p intubation COMPARISON STUDY: Chest CT performed earlier today. FINDINGS: Tip of endotracheal tube 5.2 cm above the abner. There is no pneumothorax or pleural effusion. Minimal left basilar opacity favors atelectasis. There may be pulmonary vascular congestion. Cardiomegaly is noted. Oral right sixth rib fracture is incidentally noted. IMPRESSION: 1. Tip of endotracheal tube 5.2 cm above the abner. 2. Cardiomegaly. Pulmonary vascular congestion without overt pulmonary edema. 3. Mild left basilar opacity which favors atelectasis. ACT 112: Negative or not required by law. Electronically signed by: Jeyson Carr M.D. 09/13/2021 6:29 AM Code Status & VTE Plan Code Status Full code VTE Prophylaxis Plan VTE Prophylaxis will be ordered: Yes Critical Care Time 40 minutes PG Care Time/CCT Total # of Minutes Spent Total Time Spent with Patient: Total time spent is greater than 50% in coordination of care (as documented) at patient's floor/unit and/or counseling patient: Coding Level of Care Code 24438 Initial Inpt Care Lvl 3 Diagnoses Alcoholic liver failure K70.40 Coagulopathy D68.9 GI bleed K92.2 Anemia D64.9 Admitted to intensive care unit Z78.9 Shock circulatory R57.9 Thrombocytopenia D69.6 Hyponatremia E87.1 Lactic acidosis E87.2 Elevated troponin I level R77.8 Lab test negative for COVID-19 virus Z20.822
[2021-09-13] MEDS ORDERED: NOREPINEPHRINE/D5W 8 MG/508 ML BAG IV SCH (06:30)
[2021-09-13] MEDS ORDERED: PHYTONADIONE 10 MG in SODIUM CHLORIDE 0.9% 50 ML IV ONE ×2 (06:35→06:50)
--- NOTE | 2021-09-13 06:39 | CT Scan Report ---
CT OF THE CHEST WITH IV CONTRAST CLINICAL HISTORY: Fall. Altered mental status. COMPARISON STUDY: No previous studies for comparison. TECHNIQUE: Following IV administration of 94 mL of Optiray, helical axial images of the chest were o btained. Sagittal and coronal reconstructions were viewed as well as maximal intensity projections o n an independent 3-D workstation. Automated exposure control was utilized for the study. A dose low ering technique was utilized adhering to the principles of ALARA. FINDINGS: There is no evidence for traumatic injury to the thoracic aorta. Mild cardiomegaly is note d. There is no pericardial effusion. There is no pneumothorax. Trace left pleural effusion is present . The stomach and esophagus are distended and fluid-filled. No enlarged thoracic lymph nodes are pres ent. There is no mediastinal hematoma. This exam is compromised by motion artifact. This decreases se nsitivity for detection of acute rib fractures but none are identified. Old, healed fracture of the r ight sixth rib. No acute thoracic spine fracture is noted. Abdomen and pelvis will be reported separa tely. There is marked hepatic steatosis. There may be a small contusion of the left anterior inferior chest wall. IMPRESSION: 1. Exam compromised by motion artifact. Suspected small contusion of the left anterior-inferior chest wall. No additional acute traumatic findings within the chest. 2. Mild cardiomegaly. 3. Marked hepatic steatosis, better depicted on the CT of the abdomen and pelvis will be reported sep arately. 4. Fluid-filled distended stomach and esophagus. 5. Trace left pleural effusion. No pneumothorax. ACT 112: Negative or not required by law. Electronically signed by: Jeyson Carr M.D. 09/13/2021 6:37 AM
--- NOTE | 2021-09-13 06:52 | CT Scan Report ---
CT OF THE ABDOMEN AND PELVIS WITH CONTRAST CLINICAL HISTORY: GI bleed. Fall. Altered mental status. COMPARISON STUDY: None. TECHNIQUE: Following IV administration of 94 mL of Optiray, axial images of the abdomen and pelvis we re obtained from the lung bases to the proximal femurs. Images were reviewed in the axial, sagittal, and coronal planes. IV contrast was administered without complication. Automated exposure control wa s utilized for the study. A dose lowering technique was utilized adhering to the principles of ALARA . FINDINGS: No pneumatosis, free air or portal venous gas is present. The stomach is fluid-filled and d istended as is visualized portions of the distal esophagus. There is no evidence for a small or large bowel obstruction. There is mild rectal wall thickening. Marked hepatic steatosis is noted. There is hepatomegaly. The liver is heterogeneous. The main, left and right portal veins are patent. There is no biliary or pancreatic ductal dilatation. A gallstone within the gallbladder is noted. Gallbladder wall thickening is a nonspecific finding. Size of the spleen is normal. Moderate ascites is present. There are small varices within the abdomen and pelvis. The adrenal glands, kidneys and pancreas are unremarkable. No hydronephrosis is present. Major vasculature is patent. A Bower balloon within the b ladder is noted. No acute fracture is identified within visualized skeletal structures. There is avas cular necrosis of both femoral heads. IMPRESSION: 1. Marked hepatic steatosis. Hepatomegaly and heterogeneous liver parenchyma. Suspected cirrhosis wit h sequela of portal hypertension including moderate ascites and varices formation. 2. Fluid-filled distended stomach and distal esophagus. No small or large bowel obstruction. Mild rec melissa wall thickening, a nonspecific finding. 3. No acute traumatic findings within the abdomen or pelvis. 4. Cholelithiasis. Gallbladder wall thickening, a nonspecific finding in the setting of liver disease . 5. Avascular necrosis of the femoral heads. ACT 112: Negative or not required by law. Electronically signed by: Jeyson Carr M.D. 09/13/2021 6:51 AM
--- NOTE | 2021-09-13 07:08 | CT Scan Report ---
CT SCAN OF THE BRAIN WITHOUT IV CONTRAST CLINICAL HISTORY: Fall. Intoxication. COMPARISON STUDY: No priors. TECHNIQUE: Unenhanced axial CT scan of the brain is performed from the vertex to the skull base. A d ose lowering technique was utilized adhering to the principles of ALARA. The patient was scanned twic e due to motion artifact. CT DOSE: 5874.32 mGy.cm FINDINGS: Brain parenchyma: The brain parenchyma is normal in appearance. There is no hemorrhage, mass effect, or evidence of acute territorial ischemia by CT criteria. Cherry-white matter differentiation is preser noemy. No extra-axial fluid collection is seen. Ventricles, sulci, cisterns: Normal in configuration. Intracranial vasculature: The visualized intracranial vasculature at the skull base is normal in appe arance. Calvarium: There is no depressed calvarial fracture. Sinuses and mastoids: There is mild to moderate mucosal thickening with an air-fluid level in the rig ht maxillary antrum. Mucosal thickening is also seen within the right frontal and right ethmoid sinus es. The mastoid air cells are well pneumatized. Orbits: The bony orbits are grossly intact. IMPRESSION: No acute intracranial abnormality. ACT 112: Negative or not required by law. Electronically signed by: Avila Davison M.D. 09/13/2021 7:06 AM
[2021-09-13] MEDS ORDERED: THIAMINE HCL 200 MG in SODIUM CHLORIDE 0.9% 50 ML IV STA (07:12)
[2021-09-13] MEDS ORDERED: VASOPRESSIN 20 UNITS in 0.9 % SODIUM CHLORIDE 100 ML IV SCH (07:15)
[2021-09-13] MEDS ORDERED: PATIENT'S ALLERGY INFO NEEDS ENTERED SCH ×2 (07:30→12:00)
--- NOTE | 2021-09-13 07:40 | Procedure Note ---
Procedure Note Date of Service September 13, 2021 Note ARTERIAL LINE PROCEDURE NOTE: Procedure: Arterial Line Placement Attending: Dr. Schaefer Provider: JULIANNE Duarte Indication: Monitoring on Pressors Anesthesia:Lidocaine 1% Line placed emergently in the setting of hypovolemic shock secondary to acute GI bleed. A time-out was completed verifying correct patient, procedure, site, positioning, and implant(s) or special equipment if applicable. Allens test was performed to ensure adequate perfusion. Patients right wrist was prepped and draped in the usual sterile fashion. Ultrasound guidance was used to aid needle placement. A 20g Arrow arterial line was introduced into the right radial artery. Catheter was threaded, and the needle was removed with appropriate blood return. Good waveform was observed. The patient tolerated the procedure well. Confirmation of placement with ultrasound. Blood Loss: Minimal Complications: None Procedural Ultrasound Guidance: Procedure Date: 09/13/2021 Indication: Arterial line insertion Attending: Dr. Schaefer Provider: JULIANNE Duarte Artery Identified: YES Line confirmed in Artery with ultrasound: Yes Complications: NONE Patient tolerated procedure: WELL Coding CPT Codes Tubes, Drains, and Vasc Access - Tubes, Drains, and Vasc Access: [id number] Place Catheter In Artery ([id number]) Tubes, Drains, and Vasc Access - Tubes, Drains, and Vasc Access: [id number] Ultraso und Guidance For Vascular ([id number]) [facility] [place] Procedure Codes (Charges) Tubes, Drains, and Vasc Access Procedure 1: Tubes, Drains, and Vasc Access: [id number] Place Catheter In Artery Procedure 2: Tubes, Drains, and Vasc Access: [id number] Ultrasound Guidance For Vascular
--- NOTE | 2021-09-13 07:42 | Procedure Note ---
Procedure Note Date of Service September 13, 2021 Note Critical Care Medicine Procedure Date: Noted above Procedure: Paracentesis Pre-procedure Diagnosis: Concern for spontaneous bacterial peritonitis Post-procedure Diagnosis: same as above Prior to Procedure: Informed Consent: Emergent consent implied. Attending Staff: Rojas Schaefer DO Resident/Physician Extension Course Coordinator: Faith WHITAKER The identity of the patient was confirmed and a bedside time out was performed. Description of Procedure: Patient positioned, the right lower quadrant of the abdomen was prepped and draped in usual sterile fashion. Static ultrasound guidance was used and appropriate fluid pocket was identified. 3 mL of 1% Lidocaine without epinephrine was used to anesthetize the area. A needle was introduced into the peritoneal space and fluid was removed. Total Fluid Removed: 65 ml Color of Fluid: Straw Sent for: Gram Stain, culture, cell count, glucose, protein Complications: None Estimated blood loss: Negligible Coding CPT Codes Abdomen - Abdominal: 43018 Abdominal Paracentesis (diagnostic or therapeutic); W/O imaging ([id number]) [facility] [place] Codes (Charges) Abdomen Abdominal: 49552 Abdominal Paracentesis (diagnostic or therapeutic); W/O imaging
--- NOTE | 2021-09-13 07:47 | Anesthesiology Consultation ---
Date of Service September 13, 2021 Assessment & Plan (1) Encounter for pre-operative examination: Chart Review Chart Review: Acceptable Risk for Surgery and Patient NOT seen in Pre Admission Testing Consults Requested none History Surgery Operation Date: 09/13/21 13:20 Proposed Procedures p Esophagogastroduodenoscopy Eliezer Patterson DO Operation Date: 09/13/21 17:25 Proposed Procedures p Esophagogastroduodenoscopy Dr Leonardo Patterson, Height/Weight Height: 5 ft 8 in Weight: 84.3 kg Medications Active Medications Generic Name Dose Route Start Last Admin Trade Name Freq PRN Reason Stop Dose Admin Pantoprazole Sodium 40 mg/ 100 mls @ 20 mls/hr 09/13/21 04:45 09/13/21 06:17 Dextrose IV 09/13/21 09:44 8 mg/hr Q5H SUSAN 20 mls/hr Administration 8 MG/HR Octreotide Acetate 500 mcg/ 105 mls @ 10.5 mls/hr 09/13/21 05:15 09/13/21 07:13 Dextrose IV 10/13/21 05:14 50 mcg/hr .Q10H SUSAN 10.5 mls/hr Infusion 50 MCG/HR Propofol 1,000 mg in 100 mls @ 10.116 mls/hr 09/13/21 06:00 09/13/21 05:59 Diprivan IV 09/16/21 05:59 5 mcg/kg/min .Q9H54M SUSAN 2.5 mls/hr Administration Protocol 20 MCG/KG/MIN Propofol 20 mg 09/13/21 05:57 09/13/21 05:59 Propofol Bolus From Bag IV 09/16/21 05:56 20 mg Q5M PRN Administration Sedation Past Medical History Medical History Acute GI bleeding Alcoholic liver failure Anemia Coagulopathy Elevated troponin I level Hyponatremia Lactic acidosis Shock circulatory Thrombocytopenia Exercise / Class Metabolic Activity II 4-5 Yardwork/Stairs/Walk up hill Past Surgical History unknown Past Anesthesia History No Hx of Anesthesia Complications (unable to assess) and No Family Hx of Anesthesia Complications (unable to assess ) Social History Smoking Status: Current some day smoker Hx Alcohol Use: Yes Physical Exam Vital Signs Last Vital Signs Temp 35.1 C L 09/13/21 08:30 Pulse 117 H 09/13/21 09:35 Resp 24 09/13/21 09:35 BP 127/75 09/13/21 09:35 Pulse Ox 100 09/13/21 09:35 Testing Laboratory Results 09/13/21 07:31 09/13/21 07:29 PT 19.9 Seconds (9.0-12.0) H 09/13/21 08:02 INR 2.1 (0.9-1.1) H 09/13/21 08:02 APTT 47.6 Seconds (21.0-31.0) H* 09/13/21 04:31 Blood Type A Negative 09/13/21 04:31 Antibody Screen NEGATIVE 09/13/21 04:31 09/13/21 07:30 Gram Stain - Final Abdomen 09/13/21 07:12 POC Glucose (other) 133 H Electrocardiogram Date: 09/13/21 Findings: + NSR @ (96) Normal sinus rhythm Marked ST abnormality, possible inferolateral subendocardial injury Prolonged QT Abnormal ECG No previous ECGs available Chest X-Ray Date: 09/13/21 XR chest 1V portable CLINICAL HISTORY: s/p intubation COMPARISON STUDY: Chest CT performed earlier today. FINDINGS: Tip of endotracheal tube 5.2 cm above the abner. There is no pneumothorax or pleural effusion. Minimal left basilar opacity favors atelectasis. There may be pulmonary vascular congestion. Cardiomegaly is noted. Oral right sixth rib fracture is incidentally noted. IMPRESSION: 1. Tip of endotracheal tube 5.2 cm above the abner. 2. Cardiomegaly. Pulmonary vascular congestion without overt pulmonary edema. 3. Mild left basilar opacity which favors atelectasis
[2021-09-13 07:52] LABS: Hematocrit (blood only) 33.2 % (42-52); Hemoglobin 11.1 g/dL (14.0-18.0); Mean Corpuscular Hemoglobin 33.3 pg (25-34); Mean Corpuscular Hgb Conc 33.4 g/dL (32-36); Mean Corpuscular Volume 99.7 fL (80-100); Mean Platelet Volume 11.6 fL (7.4-10.4); Nucleated RBC # (auto) 0.06 K/uL (0-0); Nucleated RBC % (auto) 0.7 %; Platelet Count 82 K/uL (130-400); RDW Coefficient of Variation 16.2 % (11.5-14.5); Red Blood Count 3.33 M/uL (4.7-6.1); White Blood Count 8.32 K/uL (4.8-10.8)
[2021-09-13] MEDS ORDERED: ALBUMIN HUMAN 5% 12.5 GM/250 ML VIAL IV ONE (07:53)
[2021-09-13] MEDS ORDERED: TRANEXAMIC ACID / 0.7% NACL 1000MG/100ML BAG IV ONE (07:56)
[2021-09-13] MEDS ORDERED: THIAMINE HCL 500 MG in SODIUM CHLORIDE 0.9% 50 ML IV SCH (08:00)
--- NOTE | 2021-09-13 08:09 | Critical Care Consultation ---
Date of Consultation September 13, 2021 Assessment & Plan (1) Melena: (2) Anemia: (3) Alcoholic liver failure: (4) Acute GI bleeding: (5) Hepatic encephalopathy: (6) Gastric varices: (7) Alcohol use disorder: (8) Acute alcohol intoxication: Reason Critically Ill: 46-year-old male here with a PMHx significant for AUD and alcoholic liver failure who presented with acute GI bleed and was admitted for emergent management of acute blood loss. Neuro Sedation: Propofol Hepatic encephalopathy with ammonia of 512. Acute alcohol intoxication in the setting of AUD as well. Currently sedated and intubated. He will require emergent transfer for GI procedure as below. Cardiac Acute blood loss anemia w/ hypovolemic shock - Has received 4U PRBC, 4U FFP, 1U Plt, Vitamin K 10mg - Ordered 1U cryoprecipitate - Monitor H/H q6h - Received fluid resuscitation in ER - Started on vasopressin to maintain MAP of 65 or above -- titrate as able Respiratory CT chest with pulmonary vascular congestion and mild left basilar opacity favoring atelectasis. Intubated for airway protection. GI NPO Acute GI bleed - EGD performed by GI with findings of gastric varices with clots. Recommending transfer to tertiary center for TIPS procedure, which is unavailable at our facility. - [place]s [place] [facility] [place] and [facility] who have agreed to transfer patient for TIPS procedure with plans to return to our facility. Please refer to attending documentation for further information. - Will continue octreotide gtt, Pantoprazole 40mg IV daily Renal/Electrolytes Hypocalcemic on labs -- ordered 2g calcium gluconate Thiamine 500mg IV daily in the setting of alcohol use disorder, possible withdrawal. Replace lytes as needed. LEONARDO Bower in place Endo ICU hyperglycemia protocol Heme Acute blood loss anemia -- Has received 4U PRBC, 4U FFP, 1U Plt, Vitamin K 10mg - Ordered 1U cryoprecipitate - Monitor H/H q6h - Vasopressin for MAP of 65 or above -- titrate as able ID - Paracentesis performed for concern of SBP -- 65mL of fluid removed and sent for gram stain, culture, cell count, glucose, protein. - Given ceftriaxone in ED, continue - BCx pending Monitor fever curve. Lines/IV Access - PIVs intact. - Right radial arterial line - Right femoral triple lumen DVT Prophylaxis Chemoppx contraindicated in GI bleed. Thank you for allowing us to be part of this patient's care. Please refer to Dr. Schaefer's documentation for any further recommendations. Supervising Physician Co-Signing Physician Notes Dr. Kuo was resident physician during care of patient. I separately evaluated patient for mendez portions of the history and the exam. I was present during the critical portion of medical decision making, and I discussed the case with the resident. I generally agree with the findings and plan. Discussed with gastroenterology after EGD, most likely this is bleeding from a gastric varix will require TIPS procedure. I have attempted to consult [facility] for emergent/urgent transfer. 0930: [facility] does not have bed availability encourage looking at other campuses for possible transfer. 1030: [facility]: Per the GI service at [facility] it is reasonable to transfer for TIPS evaluation, the staff reported there was concern about being an [id number] Medicaid patient, our notes list that the patient has a [place] address. The issue had been escalated to the client services administrator of utilization management at [place] and we are awaiting their determination if they are willing to accept the patient. 11:00 Travis Brown MICU attending accepting in transfer. Working to facilitate transfer agreement from [facility]. Will look to helicopter EMS for transfer to [facility]. Treatment/Transfer agreement signed by AOD Dr. Zoraida Bronson and staff working to faciliate [facility]EM[facility] transfer. I updated the patient's friend who he was staying with, Margo Buckley, that he requires transfer to [facility] for further treatment. I have personally spent 90 minutes of critical care time in the direct management of this patient. This is a life/limb threatening event. This includes time spent evaluating patient, direct bedside care, chart review, placing orders, interpretation of diagnostic studies, discussion with consultants, patient, and/or family members regarding treatment decisions, as well as other required patient management activities. This time is exclusive of all separately billable procedures, and teaching time and separate from and in addition to any other critical care service time. History of Present Illness Attending Physician: Min Isaac MD History of Present Illness Chato Crouch is a 46-year-old male unknown to our hospital with unknown PMH except for alcoholic liver failure. Patient is originally from [place] and met his current girlfriend online and had been here with her for about 2 weeks. She found him on the floor covered in dark-colored stool and intoxicated. Patient arrived intoxicated to ED and initially answering questions bur unable to provide significant history. He was significantly hypotensive and was intubated in ED for airway protection. He was given 4 units PRBC, 4 units FFP, Vitamin K 10mg, 1 unit of Plt in ED. Started on pressors in ED prior to transfer up to ICU. GI aware with plans for urgent EGD. Patient History Medical History Acute GI bleeding Alcoholic liver failure Anemia Coagulopathy Elevated troponin I level Hyponatremia Lactic acidosis Shock circulatory Thrombocytopenia Social History Smoking Status: Current some day smoker Hx Alcohol Use: Yes Preferred Language: Tajik Feels Safe at Home: Yes Review of Systems Review of Systems: Unobtainable due to endotracheal tube Physical Exam Physical Exam: GENERAL: Sedated. HEENT: Atraumatic CHEST/LUNGS: Coarse lung sounds bilaterally HEART: RRR. No m/g/r. No carotid bruits. ABDOMEN: Soft, ND. BS+ x4 EXTREMITIES: No cyanosis, no clubbing, no edema SKIN: Warm and dry. No rashes or lesions. NEUROLOGIC: Difficult to assess due to sedation/intubation Results & Data Results & Data ([facility]) Vital Signs (Past 12 Hours) Vital Signs Temp Pulse Resp BP Pulse Ox 09/13/21 07:10 24 09/13/21 07:05 34.5 C L 98 H 30 H 88/44 L 99 09/13/21 07:00 34.6 C L 99 H 29 H 89/44 L 99 09/13/21 06:55 34.6 C L 100 H 29 H 88/45 L 99 09/13/21 06:54 99 H 24 96/51 L 98 09/13/21 06:50 34.5 C L 100 H 27 H 96/51 L 98 09/13/21 06:45 34.5 C L 100 H 25 H 90/46 L 97 09/13/21 06:40 34.4 C L 98 H 26 H 97/53 L 99 09/13/21 06:35 34.4 C L 99 H 28 H 88/41 L 100 09/13/21 06:31 34.3 C L 99 H 24 79/50 L 100 09/13/21 06:30 34.3 C L 99 H 25 H 79/50 L 100 09/13/21 06:25 34.2 C L 99 H 26 H 78/51 L 100 09/13/21 06:20 34.2 C L 99 H 25 H 82/43 L 100 09/13/21 06:15 34.1 C L 100 H 25 H 81/39 L 100 09/13/21 06:12 34.1 C L 101 H 25 H 75/43 L 100 09/13/21 06:10 34.1 C L 101 H 25 H 83/49 L 100 09/13/21 06:05 34.0 C L 102 H 23 88/49 L 99 09/13/21 06:01 34.0 C L 100 H 20 96/46 L 99 09/13/21 05:55 34.1 C L 96 H 20 96/56 L 97 09/13/21 05:50 34.1 C L 96 H 20 113/67 96 09/13/21 05:45 34.1 C L 96 H 18 98/45 L 93 09/13/21 05:40 94 H 20 93/53 L 96 09/13/21 05:37 93 H 24 76/35 L 99 09/13/21 05:35 93 H 23 76/35 L 99 09/13/21 05:34 93 H 25 H 73/41 L 94 09/13/21 05:06 96 H 30 H 94 09/13/21 05:01 98 H 28 H 84/39 L 94 09/13/21 04:55 34.9 C L 97 H 31 H 83/32 L 94 09/13/21 04:53 100 H 36 H 78/45 L 94 09/13/21 04:45 98 H 34 H 69/37 L 93 09/13/21 04:40 96 H 28 H 73/34 L 91 09/13/21 04:36 95 H 31 H 63/37 L 93 09/13/21 04:31 99 H 26 H 55/35 L 95 09/13/21 04:21 34.9 C L 92 H 33 H 51/40 L 90 Critical Care Results & Data Vital Signs (Past 12 Hours) Vital Signs Temp Pulse Resp BP Pulse Ox 09/13/21 11:00 35.2 C L 115 H 28 H 103/60 96 09/13/21 10:50 115 H 26 H 96 09/13/21 10:09 34.8 C L 114 H 24 103/43 L 96 09/13/21 10:00 117 H 24 108/55 L 97 09/13/21 09:45 117 H 24 99 09/13/21 09:40 117 H 24 123/75 100 09/13/21 09:35 117 H 24 127/75 100 09/13/21 09:30 113 H 24 128/75 100 09/13/21 09:27 112 H 24 100 09/13/21 08:30 35.1 C L 107 H 31 H 117/74 99 09/13/21 08:25 35.0 C L 107 H 29 H 99 09/13/21 08:22 35.0 C L 107 H 24 120/61 99 09/13/21 08:20 35.0 C L 108 H 28 H 99 09/13/21 08:17 35.0 C L 108 H 100 09/13/21 07:52 112 H 29 H 10 L 09/13/21 07:35 34.5 C L 104 H 26 H 143/83 H 97 09/13/21 07:30 34.5 C L 106 H 29 H 131/81 98 09/13/21 07:25 34.5 C L 104 H 30 H 124/79 99 09/13/21 07:20 34.5 C L 102 H 30 H 116/75 99 09/13/21 07:15 34.6 C L 99 H 31 H 104/58 L 99 09/13/21 07:10 34.6 C L 99 H 29 H 91/44 L 98 09/13/21 07:05 34.5 C L 98 H 30 H 88/44 L 99 09/13/21 07:00 34.6 C L 99 H 29 H 89/44 L 99 09/13/21 06:55 34.6 C L 100 H 29 H 88/45 L 99 09/13/21 06:54 99 H 24 96/51 L 98 09/13/21 06:50 34.5 C L 100 H 27 H 96/51 L 98 09/13/21 06:45 34.5 C L 100 H 25 H 90/46 L 97 09/13/21 06:40 34.4 C L 98 H 26 H 97/53 L 99 09/13/21 06:35 34.4 C L 99 H 28 H 88/41 L 100 09/13/21 06:31 34.3 C L 99 H 24 79/50 L 100 09/13/21 06:30 34.3 C L 99 H 25 H 79/50 L 100 09/13/21 06:25 34.2 C L 99 H 26 H 78/51 L 100 09/13/21 06:20 34.2 C L 99 H 25 H 82/43 L 100 09/13/21 06:15 34.1 C L 100 H 25 H 81/39 L 100 09/13/21 06:12 34.1 C L 101 H 25 H 75/43 L 100 09/13/21 06:10 34.1 C L 101 H 25 H 83/49 L 100 09/13/21 06:05 34.0 C L 102 H 23 88/49 L 99 09/13/21 06:01 34.0 C L 100 H 20 96/46 L 99 09/13/21 05:55 34.1 C L 96 H 20 96/56 L 97 09/13/21 05:50 34.1 C L 96 H 20 113/67 96 09/13/21 05:45 34.1 C L 96 H 18 98/45 L 93 09/13/21 05:40 94 H 20 93/53 L 96 09/13/21 05:37 93 H 24 76/35 L 99 09/13/21 05:35 93 H 23 76/35 L 99 09/13/21 05:34 93 H 25 H 73/41 L 94 09/13/21 05:06 96 H 30 H 94 09/13/21 05:01 98 H 28 H 84/39 L 94 09/13/21 04:55 34.9 C L 97 H 31 H 83/32 L 94 09/13/21 04:53 100 H 36 H 78/45 L 94 09/13/21 04:45 98 H 34 H 69/37 L 93 09/13/21 04:40 96 H 28 H 73/34 L 91 09/13/21 04:36 95 H 31 H 63/37 L 93 09/13/21 04:31 99 H 26 H 55/35 L 95 09/13/21 04:21 34.9 C L 92 H 33 H 51/40 L 90 Lab & Micro Results (Past 24 Hours) RBC 3.33 M/uL (4.7-6.1) L 09/13/21 WBC 8.32 K/uL (4.8-10.8) 09/13/21 Hgb 11.1 g/dL (14.0-18.0) L 09/13/21 Hct 33.2 % (42-52) L 09/13/21 MCV 99.7 fL (80-100) 09/13/21 MCH 33.3 pg (25-34) 09/13/21 MCHC 33.4 g/dL (32-36) 09/13/21 RDW Standard Deviation 57.0 fL (36.4-46.3) H 09/13/21 RDW Coefficient of Variation 16.2 % (11.5-14.5) H 09/13/21 Plt Count 82 K/uL (130-400) L 09/13/21 MPV 11.6 fL (7.4-10.4) H 09/13/21 Nucleated Red Blood Cells % (auto) 0.7 % 09/13/21 Nucleated RBC Absolute Count (auto) 0.06 K/uL (0-0) H 09/13/21 Neutrophils (%) (Auto) 69.9 % 09/13/21 Lymphocytes (%) (Auto) 19.8 % 09/13/21 Monocytes # (Auto) 0.86 K/uL (0.11-0.59) H 09/13/21 Eosinophils # (Auto) 0.05 K/uL (0-0.5) 09/13/21 Immature Granulocyte % (Auto) 0.6 % 09/13/21 Neutrophils # (Auto) 6.56 K/uL (1.4-6.5) H 09/13/21 Lymphocytes # (Auto) 1.86 K/uL (1.2-3.4) 09/13/21 Monocytes # (Auto) 0.86 K/uL (0.11-0.59) H 09/13/21 Eosinophils # (Auto) 0.05 K/uL (0-0.5) 09/13/21 Basophils # (Auto) 0.01 K/uL (0-0.2) 09/13/21 Immature Granulocyte # (Auto) 0.06 K/uL (0.00-0.02) H 09/13/21 Echinocytes 1+ 09/13/21 [place] Bodies 1+ 09/13/21 Na Not Reportable 09/13/21 K Not Reportable 09/13/21 Cl Not Reportable 09/13/21 CO2 Not Reportable 09/13/21 Anion Gap Not Reportable 09/13/21 BUN Not Reportable 09/13/21 Creatinine Not Reportable 09/13/21 Estimated GFR ( Amer) Not Reportable 09/13/21 Estimated GFR (Non-Af Amer) Not Reportable 09/13/21 BUN/Creatinine Ratio Not Reportable 09/13/21 Glu Not Reportable 09/13/21 Ca Not Reportable 09/13/21 Total Bilirubin 14.3 mg/dl (0.2-1.0) H 09/13/21 AST 1731 U/L (13-39) H 09/13/21 ALT 547 U/L (7-52) H 09/13/21 Alkaline Phosphatase 135 U/L (34-104) H 09/13/21 TP 5.0 gm/dl (6.0-8.3) L 09/13/21 Albumin 2.2 gm/dl (3.4-5.0) L 09/13/21 Globulin 2.8 gm/dl (2.5-4.0) 09/13/21 Albumin/Globulin Ratio 0.8 (0.9-2) L 09/13/21 Calcium Level Not Reportable 09/13/21 07:29 09/13/21 Ionized Calcium 0.88 mmol/L (1.12-1.32) L 09/13/21 08:32 09/13/21 Prothromb Time International Ratio 2.1 (0.9-1.1) H 09/13/21 08:02 09/13/21 Microbiology 09/13/21 07:30 Gram Stain - Final Abdomen Diagnostic Findings (Past 24 Hours) Head CT 09/13/21 04:45 CT SCAN OF THE BRAIN WITHOUT IV CONTRAST CLINICAL HISTORY: Fall. Intoxication. COMPARISON STUDY: No priors. TECHNIQUE: Unenhanced axial CT scan of the brain is performed from the vertex to the skull base. A dose lowering technique was utilized adhering to the principles of ALARA. The patient was scanned twice due to motion artifact. CT DOSE: 5874.32 mGy.cm FINDINGS: Brain parenchyma: The brain parenchyma is normal in appearance. There is no hemorrhage, mass effect, or evidence of acute territorial ischemia by CT criteria. Cherry-white matter differentiation is preserved. No extra-axial fluid collection is seen. Ventricles, sulci, cisterns: Normal in configuration. Intracranial vasculature: The visualized intracranial vasculature at the skull base is normal in appearance. Calvarium: There is no depressed calvarial fracture. Sinuses and mastoids: There is mild to moderate mucosal thickening with an air- fluid level in the right maxillary antrum. Mucosal thickening is also seen within the right frontal and right ethmoid sinuses. The mastoid air cells are well pneumatized. Orbits: The bony orbits are grossly intact. IMPRESSION: No acute intracranial abnormality. ACT 112: Negative or not required by law. Electronically signed by: Avila Davison M.D. 09/13/2021 7:06 AM Abdomen/Pelvis CT 09/13/21 04:47 CT OF THE ABDOMEN AND PELVIS WITH CONTRAST CLINICAL HISTORY: GI bleed. Fall. Altered mental status. COMPARISON STUDY: None. TECHNIQUE: Following IV administration of 94 mL of Optiray, axial images of the abdomen and pelvis were obtained from the lung bases to the proximal femurs. Images were reviewed in the axial, sagittal, and coronal planes. IV contrast was administered without complication. Automated exposure control was utilized for the study. A dose lowering technique was utilized adhering to the principles of ALARA. FINDINGS: No pneumatosis, free air or portal venous gas is present. The stomach is fluid-filled and distended as is visualized portions of the distal esophagus. There is no evidence for a small or large bowel obstruction. There is mild rectal wall thickening. Marked hepatic steatosis is noted. There is hepatomegaly. The liver is heterogeneous. The main, left and right portal veins are patent. There is no biliary or pancreatic ductal dilatation. A gallstone within the gallbladder is noted. Gallbladder wall thickening is a nonspecific finding. Size of the spleen is normal. Moderate ascites is present. There are small varices within the abdomen and pelvis. The adrenal glands, kidneys and pancreas are unremarkable. No hydronephrosis is present. Major vasculature is patent. A Bower balloon within the bladder is noted. No acute fracture is identified within visualized skeletal structures. 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 IMPRESSION: 1. Marked hepatic steatosis. Hepatomegaly and heterogeneous liver parenchyma. Suspected cirrhosis with sequela of portal hypertension including moderate ascites and varices formation. 2. Fluid-filled distended stomach and distal esophagus. No small or large bowel obstruction. Mild rectal wall thickening, a nonspecific finding. 3. No acute traumatic findings within the abdomen or pelvis. 4. Cholelithiasis. Gallbladder wall thickening, a nonspecific finding in the setting of liver disease. 5. Avascular necrosis of the femoral heads. ACT 112: Negative or not required by law. Electronically signed by: Jeyson Carr M.D. 09/13/2021 6:[address] 09/13/21 04:47 CT OF THE CHEST WITH IV CONTRAST CLINICAL HISTORY: Fall. Altered mental status. COMPARISON STUDY: No previous studies for comparison. TECHNIQUE: Following IV administration of 94 mL of Optiray, helical axial images of the chest were obtained. Sagittal and coronal reconstructions were viewed as well as maximal intensity projections on an independent 3-D workstation. Automated exposure control was utilized for the study. A dose lowering technique was utilized adhering to the principles of ALARA. FINDINGS: There is no evidence for traumatic injury to the thoracic aorta. Mild cardiomegaly is noted. There is no pericardial effusion. There is no pneumothorax. Trace left pleural effusion is present. The stomach and esophagus are distended and fluid-filled. No enlarged thoracic lymph nodes are present. There is no mediastinal hematoma. This exam is compromised by motion artifact. This decreases sensitivity for detection of acute rib fractures but none are identified. Old, healed fracture of the right sixth rib. No acute thoracic spine fracture is noted. Abdomen and pelvis will be reported separately. There is marked hepatic steatosis. There may be a small contusion of the left anterior inferior chest wall. IMPRESSION: 1. Exam compromised by motion artifact. Suspected small contusion of the left anterior-inferior chest wall. No additional acute traumatic findings within the chest. 2. Mild cardiomegaly. 3. Marked hepatic steatosis, better depicted on the CT of the abdomen and pelvis will be reported separately. 4. Fluid-filled distended stomach and esophagus. 5. Trace left pleural effusion. No pneumothorax. ACT 112: Negative or not required by law. Electronically signed by: Jeyson Carr M.D. 09/13/2021 6:37 AM Chest X-Ray 09/13/21 05:43 XR chest 1V portable CLINICAL HISTORY: s/p intubation COMPARISON STUDY: Chest CT performed earlier today. FINDINGS: Tip of endotracheal tube 5.2 cm above the abner. There is no pneumothorax or pleural effusion. Minimal left basilar opacity favors atelectasis. There may be pulmonary vascular congestion. Cardiomegaly is noted. Oral right sixth rib fracture is incidentally noted. IMPRESSION: 1. Tip of endotracheal tube 5.2 cm above the abner. 2. Cardiomegaly. Pulmonary vascular congestion without overt pulmonary edema. 3. Mild left basilar opacity which favors atelectasis. ACT 112: Negative or not required by law. Electronically signed by: Jeyson Carr M.D. 09/13/2021 6:29 AM I & O Totals 24 Hours 09/12/21 09/13/21 09/14/21 06:59 06:59 06:59 Intake Total 3007 / 3007 195 / 195 Output Total 50 / 50 Balance 3007 / 3007 145 / 145 Cumulative 09/13/21 04:05 thru 09/13/21 10:18 Intake Total 3202 Output Total 50 Balance 3152 RT Ventilator Mngmt (Last Documented) Ventilator Ordered Settings Ventilator Support Mode Assist Control 09/13/21 10:50 Respiratory Rate 28 09/13/21 11:00 Ventilator Tidal Volume 400 09/13/21 10:50 Setting Minute Ventilation 9.7 09/13/21 10:50 Positive End Expiratory 5 09/13/21 10:50 Pressure Fraction of Inspired Oxygen 80 09/13/21 10:50 Machine Comment Patient back from OR 09/13/21 09:20 Ventilator - PT Measurements Respiratory Rate 28 Exhaled Tidal Volume 406 Minute Ventilation 9.7 Peak Inspiratory Airway 31 Pressure Plateau Pressure 29 Respiratory Cycle Inspiratory: 1:2.1 Expiratory Ratio Inspiratory Phase Time 0.80 End-Tidal CO2 30 Static Lung Compliance 16.92 Dynamic Lung Compliance 15.62 Normal Static Lung Compliance 44.00 Patient Measurements Comment ETCO2 adjusted Resident Activity Tracking Resident Involvement: Resident Care Provided Care Provided: Adult Hospital Medicine
[2021-09-13] MEDS ORDERED: MIDAZOLAM HCL 1 MG/ML 2ML VIAL ONE ×2 (08:16)
[2021-09-13] MEDS ORDERED: ICU PROTOCOL FOR HYPERGLYCEMIA PRN (08:18)
[2021-09-13 08:23] LABS: Appearance Peritoneal Fluid CLEAR; Basophils, Fluid 0 %; Color Peritoneal Fluid YELLOW; Eosinophils, Fluid 0 %; Lymphocytes, Fluid 21 %; Mono,Macrophage,Mesothelial 68 %; Neutrophils, Fluid 11 %; RBC Peritoneal Fluid (A) < 3000 /uL; WBC Peritoneal Fluid (A) 98 /ul (0-300)
--- NOTE | 2021-09-13 08:29 | Gastrointestinal Consultation ---
Date of Consultation September 13, 2021 Assessment & Plan (1) Melena: 46 year old male, suspected GI bleed, ETOH hepatitis, found down at home admitted to the ICU, intubated awaiting EGD this AMw/ report of ongoing melena in the ICU NPO , EGD IV PPI bolus and drip IV Octreotide bolus and drip Trend H&H Trend MELD labs IV ABX for SBP prophylaxis Appreciate ICU management for fluid optimization, transfusion of blood products High MELD, unable to sign into [email or web address] EMR this AM but given lack of part medical history would consider transfer to tertiary care center once stabilized Please see EGD report once completed for additional recommendations and plans. Thank you for allowing us to participate in the care of this patient. Please call with any acute changes, questions or concerns. Please see addendum below with additional recommendation from my supervising physician. Supervising Physician Co-Signing Physician Notes I have seen and examined the patient with JULIANNE Bahena whose note reflects our findings and plan. Patient found unresponsive. Episode of hematemesis at home and melena. Intoxicated on arrival. Decompensated after imaging and intubated in the ER. Acidotic. Hypothermic. bili 15. coagulopathic. Imaging with signs of cirrhosis and severe fatty liver. Emergent EGD in the OR with suspected gastric varices as the source of UGI bleeding. Patient to be transferred to tertiary care site for IR TIPs. Octreotide gtt. Keep patient sedated and intubated. Next of kin should be contacted [facility]. History of Present Illness Reason for Consultation: GI bleed Requesting Physician: Silvano Attending Physician: Min Isaac MD History of Present Illness 46 year old male presently through the ED with altered mental status, concern for GI bleed w/ report of black ourput at home. Admitted to the ICU w/ hypotension, anemia and labs concerning for ETOH hepatitis. Past medical history is unknown CHEST CT 2021: Exam compromised by motion artifact. Suspected small contusion of the left anterior-inferior chest wall. No additional acute traumatic findings within the chest.. Mild cardiomegaly. Marked hepatic steatosis, better depicted on the CT of the abdomen and pelvis will be reported separately. Fluid-filled distended stomach and esophagus. Trace left pleural effusion. No pneumothorax. HEAD CT 2021: No acute intracranial abnormality. CTAP 2021: . Marked hepatic steatosis. Hepatomegaly and heterogeneous liver parenchyma. Suspected cirrhosis with sequela of portal hypertension including moderate ascites and varices formation.. Fluid-filled distended stomach and distal esophagus. No small or large bowel obstruction. Mild rectal wall thickening, a nonspecific finding.no acute traumatic findings within the abdomen or pelvis. Cholelithiasis. Gallbladder wall thickening, a nonspecific finding in the setting of liver disease. Avascular necrosis of the femoral heads. Patient History Medical History (Updated 09/13/21 @ 08:32 by Emelia Patterson DO) Acute GI bleeding Alcoholic liver failure Anemia Coagulopathy Elevated troponin I level Hyponatremia Lactic acidosis Shock circulatory Thrombocytopenia Social History Smoking Status: Current some day smoker Hx Alcohol Use: Yes Preferred Language: Hebrew Feels Safe at Home: Yes Review of Systems Review of Systems: Unobtainable due to endotracheal tube Physical Exam Constitutional: + ill appearing, + intoxicated appearing, + thin and + disheveled Respiratory: intubated Cardiovascular: Rate/Rhythm: + tachycardic Gastrointestinal (Abdomen): Percussion/Palpation: abdomen soft Skin: + jaundice Results & Data ([facility]) Vital Signs (Past 12 Hours) Vital Signs Temp Pulse Resp BP Pulse Ox 09/13/21 08:22 35.0 C L 107 H 24 120/61 99 09/13/21 07:10 24 09/13/21 07:05 34.5 C L 98 H 30 H 88/44 L 99 09/13/21 07:00 34.6 C L 99 H 29 H 89/44 L 99 09/13/21 06:55 34.6 C L 100 H 29 H 88/45 L 99 09/13/21 06:54 99 H 24 96/51 L 98 09/13/21 06:50 34.5 C L 100 H 27 H 96/51 L 98 09/13/21 06:45 34.5 C L 100 H 25 H 90/46 L 97 09/13/21 06:40 34.4 C L 98 H 26 H 97/53 L 99 09/13/21 06:35 34.4 C L 99 H 28 H 88/41 L 100 09/13/21 06:31 34.3 C L 99 H 24 79/50 L 100 09/13/21 06:30 34.3 C L 99 H 25 H 79/50 L 100 09/13/21 06:25 34.2 C L 99 H 26 H 78/51 L 100 09/13/21 06:20 34.2 C L 99 H 25 H 82/43 L 100 09/13/21 06:15 34.1 C L 100 H 25 H 81/39 L 100 09/13/21 06:12 34.1 C L 101 H 25 H 75/43 L 100 09/13/21 06:10 34.1 C L 101 H 25 H 83/49 L 100 09/13/21 06:05 34.0 C L 102 H 23 88/49 L 99 09/13/21 06:01 34.0 C L 100 H 20 96/46 L 99 09/13/21 05:55 34.1 C L 96 H 20 96/56 L 97 09/13/21 05:50 34.1 C L 96 H 20 113/67 96 09/13/21 05:45 34.1 C L 96 H 18 98/45 L 93 09/13/21 05:40 94 H 20 93/53 L 96 09/13/21 05:37 93 H 24 76/35 L 99 09/13/21 05:35 93 H 23 76/35 L 99 09/13/21 05:34 93 H 25 H 73/41 L 94 09/13/21 05:06 96 H 30 H 94 09/13/21 05:01 98 H 28 H 84/39 L 94 09/13/21 04:55 34.9 C L 97 H 31 H 83/32 L 94 09/13/21 04:53 100 H 36 H 78/45 L 94 09/13/21 04:45 98 H 34 H 69/37 L 93 09/13/21 04:40 96 H 28 H 73/34 L 91 09/13/21 04:36 95 H 31 H 63/37 L 93 09/13/21 04:31 99 H 26 H 55/35 L 95 09/13/21 04:21 34.9 C L 92 H 33 H 51/40 L 90 Laboratory Results 09/13/21 09/13/21 09/13/21 Range/Units Unknown 08:02 08:02 WBC (4.8-10.8) K/uL RBC (4.7-6.1) M/uL Hgb (14.0-18.0) g/dL Hct (42-52) % MCV (80-100) fL MCH (25-34) pg MCHC (32-36) g/dL RDW Std Deviation (36.4-46.3) fL RDW Coeff of Federico (11.5-14.5) % Plt Count (130-400) K/uL MPV (7.4-10.4) fL Immature Gran % (Auto) % Neut % (Auto) % Lymph % (Auto) % Stone % (Auto) % Eos % (Auto) % Baso % (Auto) % Neut # (Auto) (1.4-6.5) K/uL Lymph # (Auto) (1.2-3.4) K/uL Stone # (Auto) (0.11-0.59) K/uL Eos # (Auto) (0-0.5) K/uL Baso # (Auto) (0-0.2) K/uL Immature Gran # (Auto) (0.00-0.02) K/uL Absolute Nucleated RBC (0-0) K/uL Nucleated RBC % (auto) % Platelet Estimate (Normal) Espinosa-Erma Bodies Echinocytes PT Pending (9.0-12.0) Seconds INR Pending (0.9-1.1) APTT (21.0-31.0) Seconds PTT Ratio Fibrinogen Pending Sodium (136-145) mmol/L Potassium (3.5-5.1) mmol/L Chloride (98-107) mmol/L Carbon Dioxide (21-32) mmol/L Anion Gap BUN (6-23) mg/dl Creatinine (0.6-1.4) mg/dl Est Cr Clr Drug Dosing Est GFR ( Amer) Est GFR (Non-Af Amer) BUN/Creatinine Ratio Glucose (70-99(Fasting)) mg/dl Lactate (0.4-2.0) mmol/L Calcium (8.5-10.1) mg/dl Ionized Calcium Total Bilirubin (0.2-1.0) mg/dl AST (13-39) U/L ALT (7-52) U/L Alkaline Phosphatase (34-104) U/L Ammonia Pending Total Creatine Kinase (30-223) U/L Troponin I (0-0.04) ng/ml Total Protein (6.0-8.3) gm/dl Albumin (3.4-5.0) gm/dl Globulin (2.5-4.0) gm/dl Albumin/Globulin Ratio (0.9-2) Lipase (11-82) U/L Procalcitonin (0-0.5) ng/ml Fluid Neutrophils % % Fluid Lymphocytes % % Fluid Eosinophils % % Fluid Basophils % % Fluid Meso/Macro/Stone % % Fluid Comment Peritoneal Color Peritoneal Appearance Peritoneal WBC (0-300) /ul Peritoneal RBC /uL Peritoneal Tot Protein Peritoneal Albumin POC Stool Occult Blood Positive A (Negative) Acetaminophen (10-30) ug/ml Ethyl Alcohol mg/dL (<10.0) mg/dl SARS-CoV-2, RNA, NAAT (NEGATIVE) Blood Type Blood Type Recheck Antibody Screen Crossmatch 09/13/21 09/13/21 09/13/21 Range/Units 08:02 07:31 07:30 WBC 8.32 (4.8-10.8) K/uL RBC 3.33 L (4.7-6.1) M/uL Hgb 11.1 L (14.0-18.0) g/dL Hct 33.2 L (42-52) % MCV 99.7 D (80-100) fL MCH 33.3 (25-34) pg MCHC 33.4 (32-36) g/dL RDW Std Deviation 57.0 H (36.4-46.3) fL RDW Coeff of Federico 16.2 H (11.5-14.5) % Plt Count 82 L (130-400) K/uL MPV 11.6 H (7.4-10.4) fL Immature Gran % (Auto) % Neut % (Auto) % Lymph % (Auto) % Stone % (Auto) % Eos % (Auto) % Baso % (Auto) % Neut # (Auto) (1.4-6.5) K/uL Lymph # (Auto) (1.2-3.4) K/uL Stone # (Auto) (0.11-0.59) K/uL Eos # (Auto) (0-0.5) K/uL Baso # (Auto) (0-0.2) K/uL Immature Gran # (Auto) (0.00-0.02) K/uL Absolute Nucleated RBC 0.06 H (0-0) K/uL Nucleated RBC % (auto) 0.7 % Platelet Estimate (Normal) Espinosa-Erma Bodies Echinocytes PT (9.0-12.0) Seconds INR (0.9-1.1) APTT (21.0-31.0) Seconds PTT Ratio Fibrinogen Sodium (136-145) mmol/L Potassium (3.5-5.1) mmol/L Chloride (98-107) mmol/L Carbon Dioxide (21-32) mmol/L Anion Gap BUN (6-23) mg/dl Creatinine (0.6-1.4) mg/dl Est Cr Clr Drug Dosing Est GFR ( Amer) Est GFR (Non-Af Amer) BUN/Creatinine Ratio Glucose (70-99(Fasting)) mg/dl Lactate Pending (0.4-2.0) mmol/L Calcium (8.5-10.1) mg/dl Ionized Calcium Total Bilirubin (0.2-1.0) mg/dl AST (13-39) U/L ALT (7-52) U/L Alkaline Phosphatase (34-104) U/L Ammonia Total Creatine Kinase (30-223) U/L Troponin I (0-0.04) ng/ml Total Protein (6.0-8.3) gm/dl Albumin (3.4-5.0) gm/dl Globulin (2.5-4.0) gm/dl Albumin/Globulin Ratio (0.9-2) Lipase (11-82) U/L Procalcitonin (0-0.5) ng/ml Fluid Neutrophils % 11 % Fluid Lymphocytes % 21 % Fluid Eosinophils % 0 % Fluid Basophils % 0 % Fluid Meso/Macro/Stone % 68 % Fluid Comment Peritoneal Color YELLOW Peritoneal Appearance CLEAR Peritoneal WBC 98 (0-300) /ul Peritoneal RBC < 3000 /uL Peritoneal Tot Protein Pending Peritoneal Albumin Pending POC Stool Occult Blood (Negative) Acetaminophen (10-30) ug/ml Ethyl Alcohol mg/dL (<10.0) mg/dl SARS-CoV-2, RNA, NAAT (NEGATIVE) Blood Type Blood Type Recheck Antibody Screen Crossmatch 09/13/21 09/13/21 09/13/21 Range/Units 07:29 07:29 05:04 WBC (4.8-10.8) K/uL RBC (4.7-6.1) M/uL Hgb (14.0-18.0) g/dL Hct (42-52) % MCV (80-100) fL MCH (25-34) pg MCHC (32-36) g/dL RDW Std Deviation (36.4-46.3) fL RDW Coeff of Fedreico (11.5-14.5) % Plt Count (130-400) K/uL MPV (7.4-10.4) fL Immature Gran % (Auto) % Neut % (Auto) % Lymph % (Auto) % Stone % (Auto) % Eos % (Auto) % Baso % (Auto) % Neut # (Auto) (1.4-6.5) K/uL Lymph # (Auto) (1.2-3.4) K/uL Stone # (Auto) (0.11-0.59) K/uL Eos # (Auto) (0-0.5) K/uL Baso # (Auto) (0-0.2) K/uL Immature Gran # (Auto) (0.00-0.02) K/uL Absolute Nucleated RBC (0-0) K/uL Nucleated RBC % (auto) % Platelet Estimate (Normal) Espinosa-Erma Bodies Echinocytes PT (9.0-12.0) Seconds INR (0.9-1.1) APTT (21.0-31.0) Seconds PTT Ratio Fibrinogen Sodium Pending (136-145) mmol/L Potassium Pending (3.5-5.1) mmol/L Chloride Pending (98-107) mmol/L Carbon Dioxide Pending (21-32) mmol/L Anion Gap Pending BUN Pending (6-23) mg/dl Creatinine Pending (0.6-1.4) mg/dl Est Cr Clr Drug Dosing Pending Est GFR ( Amer) Pending Est GFR (Non-Af Amer) Pending BUN/Creatinine Ratio Pending Glucose Pending (70-99(Fasting)) mg/dl Lactate (0.4-2.0) mmol/L Calcium Pending (8.5-10.1) mg/dl Ionized Calcium Cancelled Total Bilirubin (0.2-1.0) mg/dl AST (13-39) U/L ALT (7-52) U/L Alkaline Phosphatase (34-104) U/L Ammonia Total Creatine Kinase Pending (30-223) U/L Troponin I (0-0.04) ng/ml Total Protein (6.0-8.3) gm/dl Albumin (3.4-5.0) gm/dl Globulin (2.5-4.0) gm/dl Albumin/Globulin Ratio (0.9-2) Lipase (11-82) U/L Procalcitonin (0-0.5) ng/ml Fluid Neutrophils % % Fluid Lymphocytes % % Fluid Eosinophils % % Fluid Basophils % % Fluid Meso/Macro/Stone % % Fluid Comment Peritoneal Color Peritoneal Appearance Peritoneal WBC (0-300) /ul Peritoneal RBC /uL Peritoneal Tot Protein Peritoneal Albumin POC Stool Occult Blood (Negative) Acetaminophen (10-30) ug/ml Ethyl Alcohol mg/dL (<10.0) mg/dl SARS-CoV-2, RNA, NAAT (NEGATIVE) Blood Type Blood Type Recheck A Negative Antibody Screen Crossmatch 09/13/21 09/13/21 09/13/21 Range/Units 05:04 04:40 04:40 WBC (4.8-10.8) K/uL RBC (4.7-6.1) M/uL Hgb (14.0-18.0) g/dL Hct (42-52) % MCV (80-100) fL MCH (25-34) pg MCHC (32-36) g/dL RDW Std Deviation (36.4-46.3) fL RDW Coeff of Federico (11.5-14.5) % Plt Count (130-400) K/uL MPV (7.4-10.4) fL Immature Gran % (Auto) % Neut % (Auto) % Lymph % (Auto) % Stone % (Auto) % Eos % (Auto) % Baso % (Auto) % Neut # (Auto) (1.4-6.5) K/uL Lymph # (Auto) (1.2-3.4) K/uL Stone # (Auto) (0.11-0.59) K/uL Eos # (Auto) (0-0.5) K/uL Baso # (Auto) (0-0.2) K/uL Immature Gran # (Auto) (0.00-0.02) K/uL Absolute Nucleated RBC (0-0) K/uL Nucleated RBC % (auto) % Platelet Estimate (Normal) Espinosa-Erma Bodies Echinocytes PT (9.0-12.0) Seconds INR (0.9-1.1) APTT (21.0-31.0) Seconds PTT Ratio Fibrinogen Sodium (136-145) mmol/L Potassium (3.5-5.1) mmol/L Chloride (98-107) mmol/L Carbon Dioxide (21-32) mmol/L Anion Gap BUN (6-23) mg/dl Creatinine (0.6-1.4) mg/dl Est Cr Clr Drug Dosing Est GFR ( Amer) Est GFR (Non-Af Amer) BUN/Creatinine Ratio Glucose (70-99(Fasting)) mg/dl Lactate 16.1 H* (0.4-2.0) mmol/L Calcium (8.5-10.1) mg/dl Ionized Calcium Total Bilirubin (0.2-1.0) mg/dl AST (13-39) U/L ALT (7-52) U/L Alkaline Phosphatase (34-104) U/L Ammonia Total Creatine Kinase (30-223) U/L Troponin I (0-0.04) ng/ml Total Protein (6.0-8.3) gm/dl Albumin (3.4-5.0) gm/dl Globulin (2.5-4.0) gm/dl Albumin/Globulin Ratio (0.9-2) Lipase (11-82) U/L Procalcitonin 0.33 (0-0.5) ng/ml Fluid Neutrophils % % Fluid Lymphocytes % % Fluid Eosinophils % % Fluid Basophils % % Fluid Meso/Macro/Stone % % Fluid Comment Peritoneal Color Peritoneal Appearance Peritoneal WBC (0-300) /ul Peritoneal RBC /uL Peritoneal Tot Protein Peritoneal Albumin POC Stool Occult Blood (Negative) Acetaminophen < 3 L (10-30) ug/ml Ethyl Alcohol mg/dL (<10.0) mg/dl SARS-CoV-2, RNA, NAAT (NEGATIVE) Blood Type Blood Type Recheck Antibody Screen Crossmatch 09/13/21 09/13/21 09/13/21 Range/Units 04:38 04:31 04:31 WBC (4.8-10.8) K/uL RBC (4.7-6.1) M/uL Hgb (14.0-18.0) g/dL Hct (42-52) % MCV (80-100) fL MCH (25-34) pg MCHC (32-36) g/dL RDW Std Deviation (36.4-46.3) fL RDW Coeff of Federico (11.5-14.5) % Plt Count (130-400) K/uL MPV (7.4-10.4) fL Immature Gran % (Auto) % Neut % (Auto) % Lymph % (Auto) % Stone % (Auto) % Eos % (Auto) % Baso % (Auto) % Neut # (Auto) (1.4-6.5) K/uL Lymph # (Auto) (1.2-3.4) K/uL Stone # (Auto) (0.11-0.59) K/uL Eos # (Auto) (0-0.5) K/uL Baso # (Auto) (0-0.2) K/uL Immature Gran # (Auto) (0.00-0.02) K/uL Absolute Nucleated RBC (0-0) K/uL Nucleated RBC % (auto) % Platelet Estimate (Normal) Espinosa-Erma Bodies Echinocytes PT (9.0-12.0) Seconds INR (0.9-1.1) APTT (21.0-31.0) Seconds PTT Ratio Fibrinogen Sodium (136-145) mmol/L Potassium (3.5-5.1) mmol/L Chloride (98-107) mmol/L Carbon Dioxide (21-32) mmol/L Anion Gap BUN (6-23) mg/dl Creatinine (0.6-1.4) mg/dl Est Cr Clr Drug Dosing Est GFR ( Amer) Est GFR (Non-Af Amer) BUN/Creatinine Ratio Glucose (70-99(Fasting)) mg/dl Lactate (0.4-2.0) mmol/L Calcium (8.5-10.1) mg/dl Ionized Calcium Total Bilirubin (0.2-1.0) mg/dl AST (13-39) U/L ALT (7-52) U/L Alkaline Phosphatase (34-104) U/L Ammonia Total Creatine Kinase 1164 H (30-223) U/L Troponin I (0-0.04) ng/ml Total Protein (6.0-8.3) gm/dl Albumin (3.4-5.0) gm/dl Globulin (2.5-4.0) gm/dl Albumin/Globulin Ratio (0.9-2) Lipase (11-82) U/L Procalcitonin (0-0.5) ng/ml Fluid Neutrophils % % Fluid Lymphocytes % % Fluid Eosinophils % % Fluid Basophils % % Fluid Meso/Macro/Stone % % Fluid Comment Peritoneal Color Peritoneal Appearance Peritoneal WBC (0-300) /ul Peritoneal RBC /uL Peritoneal Tot Protein Peritoneal Albumin POC Stool Occult Blood (Negative) Acetaminophen (10-30) ug/ml Ethyl Alcohol mg/dL 57.7 H (<10.0) mg/dl SARS-CoV-2, RNA, NAAT NEGATIVE (NEGATIVE) Blood Type Blood Type Recheck Antibody Screen Crossmatch 09/13/21 09/13/21 09/13/21 Range/Units 04:31 04:31 04:31 WBC 9.40 (4.8-10.8) K/uL RBC 2.75 L (4.7-6.1) M/uL Hgb 9.8 L (14.0-18.0) g/dL Hct 29.1 L (42-52) % MCV 105.8 H (80-100) fL MCH 35.6 H (25-34) pg MCHC 33.7 (32-36) g/dL RDW Std Deviation 61.8 H (36.4-46.3) fL RDW Coeff of Federico 16.5 H (11.5-14.5) % Plt Count 121 L (130-400) K/uL MPV 12.3 H (7.4-10.4) fL Immature Gran % (Auto) 0.6 % Neut % (Auto) 69.9 % Lymph % (Auto) 19.8 % Stone % (Auto) 9.1 % Eos % (Auto) 0.5 % Baso % (Auto) 0.1 % Neut # (Auto) 6.56 H (1.4-6.5) K/uL Lymph # (Auto) 1.86 (1.2-3.4) K/uL Stone # (Auto) 0.86 H (0.11-0.59) K/uL Eos # (Auto) 0.05 (0-0.5) K/uL Baso # (Auto) 0.01 (0-0.2) K/uL Immature Gran # (Auto) 0.06 H (0.00-0.02) K/uL Absolute Nucleated RBC 0.05 H (0-0) K/uL Nucleated RBC % (auto) 0.5 % Platelet Estimate Decreased L (Normal) Espinosa-Erma Bodies 1+ Echinocytes 1+ PT 35.7 H (9.0-12.0) Seconds INR 3.9 H (0.9-1.1) APTT 47.6 H* (21.0-31.0) Seconds PTT Ratio 1.8 Fibrinogen Sodium 120 L (136-145) mmol/L Potassium 3.5 (3.5-5.1) mmol/L Chloride 79 L (98-107) mmol/L Carbon Dioxide (21-32) mmol/L Anion Gap TNP BUN 19 (6-23) mg/dl Creatinine (0.6-1.4) mg/dl Est Cr Clr Drug Dosing TNP Est GFR ( Amer) TNP Est GFR (Non-Af Amer) TNP BUN/Creatinine Ratio TNP Glucose 133 H (70-99(Fasting)) mg/dl Lactate (0.4-2.0) mmol/L Calcium 8.3 L (8.5-10.1) mg/dl Ionized Calcium Total Bilirubin 14.3 H (0.2-1.0) mg/dl AST 1731 H (13-39) U/L ALT 547 H (7-52) U/L Alkaline Phosphatase 135 H (34-104) U/L Ammonia Total Creatine Kinase (30-223) U/L Troponin I 0.33 H* (0-0.04) ng/ml Total Protein 5.0 L (6.0-8.3) gm/dl Albumin 2.2 L (3.4-5.0) gm/dl Globulin 2.8 (2.5-4.0) gm/dl Albumin/Globulin Ratio 0.8 L (0.9-2) Lipase (11-82) U/L Procalcitonin (0-0.5) ng/ml Fluid Neutrophils % % Fluid Lymphocytes % % Fluid Eosinophils % % Fluid Basophils % % Fluid Meso/Macro/Stone % % Fluid Comment Peritoneal Color Peritoneal Appearance Peritoneal WBC (0-300) /ul Peritoneal RBC /uL Peritoneal Tot Protein Peritoneal Albumin POC Stool Occult Blood (Negative) Acetaminophen (10-30) ug/ml Ethyl Alcohol mg/dL (<10.0) mg/dl SARS-CoV-2, RNA, NAAT (NEGATIVE) Blood Type Blood Type Recheck Antibody Screen Crossmatch 09/13/21 Range/Units 04:31 WBC (4.8-10.8) K/uL RBC (4.7-6.1) M/uL Hgb (14.0-18.0) g/dL Hct (42-52) % MCV (80-100) fL MCH (25-34) pg MCHC (32-36) g/dL RDW Std Deviation (36.4-46.3) fL RDW Coeff of Federico (11.5-14.5) % Plt Count (130-400) K/uL MPV (7.4-10.4) fL Immature Gran % (Auto) % Neut % (Auto) % Lymph % (Auto) % Stone % (Auto) % Eos % (Auto) % Baso % (Auto) % Neut # (Auto) (1.4-6.5) K/uL Lymph # (Auto) (1.2-3.4) K/uL Stone # (Auto) (0.11-0.59) K/uL Eos # (Auto) (0-0.5) K/uL Baso # (Auto) (0-0.2) K/uL Immature Gran # (Auto) (0.00-0.02) K/uL Absolute Nucleated RBC (0-0) K/uL Nucleated RBC % (auto) % Platelet Estimate (Normal) Espinosa-Erma Bodies Echinocytes PT (9.0-12.0) Seconds INR (0.9-1.1) APTT (21.0-31.0) Seconds PTT Ratio Fibrinogen Sodium (136-145) mmol/L Potassium (3.5-5.1) mmol/L Chloride (98-107) mmol/L Carbon Dioxide (21-32) mmol/L Anion Gap BUN (6-23) mg/dl Creatinine (0.6-1.4) mg/dl Est Cr Clr Drug Dosing Est GFR ( Amer) Est GFR (Non-Af Amer) BUN/Creatinine Ratio Glucose (70-99(Fasting)) mg/dl Lactate (0.4-2.0) mmol/L Calcium (8.5-10.1) mg/dl Ionized Calcium Total Bilirubin (0.2-1.0) mg/dl AST (13-39) U/L ALT (7-52) U/L Alkaline Phosphatase (34-104) U/L Ammonia Total Creatine Kinase (30-223) U/L Troponin I (0-0.04) ng/ml Total Protein (6.0-8.3) gm/dl Albumin (3.4-5.0) gm/dl Globulin (2.5-4.0) gm/dl Albumin/Globulin Ratio (0.9-2) Lipase (11-82) U/L Procalcitonin (0-0.5) ng/ml Fluid Neutrophils % % Fluid Lymphocytes % % Fluid Eosinophils % % Fluid Basophils % % Fluid Meso/Macro/Stone % % Fluid Comment Peritoneal Color Peritoneal Appearance Peritoneal WBC (0-300) /ul Peritoneal RBC /uL Peritoneal Tot Protein Peritoneal Albumin POC Stool Occult Blood (Negative) Acetaminophen (10-30) ug/ml Ethyl Alcohol mg/dL (<10.0) mg/dl SARS-CoV-2, RNA, NAAT (NEGATIVE) Blood Type A Negative Blood Type Recheck Antibody Screen NEGATIVE Crossmatch See Detail
--- NOTE | 2021-09-13 08:33 | History & Physical Report ---
Date of Service September 13, 2021 Assessment & Plan (1) GI bleed: (2) Melena: Plan: Emergent EGD in the OR this AM octreotide and PPI gtt Admission and Anticipated Discharge Date Admission Date: September 13, 2021 History of Present Illness Chief Complaint: melena Primary Care Provider: NO PCP melena Past Med/Surg History Medical History (Updated 09/13/21 @ 08:32 by Emelia Patterson, DO) Acute GI bleeding Alcoholic liver failure Anemia Coagulopathy Elevated troponin I level Hyponatremia Lactic acidosis Shock circulatory Thrombocytopenia Social History Smoking Status: Current some day smoker Hx Alcohol Use: Yes Preferred Language: Pashto Feels Safe at Home: Yes Review of Systems Unobtainable due to endotracheal tube Results & Data ([facility]) Vital Signs (Past 12 Hours) Vital Signs Temp Pulse Resp BP Pulse Ox 09/13/21 08:22 35.0 C L 107 H 24 120/61 99 09/13/21 07:10 24 09/13/21 07:05 34.5 C L 98 H 30 H 88/44 L 99 09/13/21 07:00 34.6 C L 99 H 29 H 89/44 L 99 09/13/21 06:55 34.6 C L 100 H 29 H 88/45 L 99 09/13/21 06:54 99 H 24 96/51 L 98 09/13/21 06:50 34.5 C L 100 H 27 H 96/51 L 98 09/13/21 06:45 34.5 C L 100 H 25 H 90/46 L 97 09/13/21 06:40 34.4 C L 98 H 26 H 97/53 L 99 09/13/21 06:35 34.4 C L 99 H 28 H 88/41 L 100 09/13/21 06:31 34.3 C L 99 H 24 79/50 L 100 09/13/21 06:30 34.3 C L 99 H 25 H 79/50 L 100 09/13/21 06:25 34.2 C L 99 H 26 H 78/51 L 100 09/13/21 06:20 34.2 C L 99 H 25 H 82/43 L 100 09/13/21 06:15 34.1 C L 100 H 25 H 81/39 L 100 09/13/21 06:12 34.1 C L 101 H 25 H 75/43 L 100 09/13/21 06:10 34.1 C L 101 H 25 H 83/49 L 100 09/13/21 06:05 34.0 C L 102 H 23 88/49 L 99 09/13/21 06:01 34.0 C L 100 H 20 96/46 L 99 09/13/21 05:55 34.1 C L 96 H 20 96/56 L 97 09/13/21 05:50 34.1 C L 96 H 20 113/67 96 09/13/21 05:45 34.1 C L 96 H 18 98/45 L 93 09/13/21 05:40 94 H 20 93/53 L 96 09/13/21 05:37 93 H 24 76/35 L 99 09/13/21 05:35 93 H 23 76/35 L 99 09/13/21 05:34 93 H 25 H 73/41 L 94 09/13/21 05:06 96 H 30 H 94 09/13/21 05:01 98 H 28 H 84/39 L 94 09/13/21 04:55 34.9 C L 97 H 31 H 83/32 L 94 09/13/21 04:53 100 H 36 H 78/45 L 94 09/13/21 04:45 98 H 34 H 69/37 L 93 09/13/21 04:40 96 H 28 H 73/34 L 91 09/13/21 04:36 95 H 31 H 63/37 L 93 09/13/21 04:31 99 H 26 H 55/35 L 95 09/13/21 04:21 34.9 C L 92 H 33 H 51/40 L 90 Code Status & VTE Plan VTE Prophylaxis Plan VTE Prophylaxis will be ordered: Yes
[2021-09-13 08:34] LABS: Creatine Kinase 1494 U/L (30-223)
[2021-09-13 08:39] LABS: Albumin Peritoneal Fluid < 0.6 g/dl; Total Protein Peritoneal Fluid 0.5 g/dl
[2021-09-13 08:41] LABS: INR 2.1 (0.9-1.1); Prothrombin Time 19.9 Seconds (9.0-12.0)
[2021-09-13 08:49] LABS: Fibrinogen 92 mg/dl (184-400)
[2021-09-13] MEDS ORDERED: CALCIUM GLUCONATE 10% 2,000 MG in DEXTROSE 5% 50 ML IV ONE (09:18)
--- NOTE | 2021-09-13 09:23 | Billing Data ---
Date of Service September 13, 2021 Coding Level of Care Code Critical Care 1st - mins
[2021-09-13 09:24] LABS: iSTAT Creatinine 1.6 mg/dl (0.6-1.3); iSTAT Ionized Calcium 0.79 mmol/l (1.12-1.32)
--- NOTE | 2021-09-13 09:24 | GI REPORT ---
Patient Name: Chato Crouch Procedure Date: 09/13/2021 8:18 AM Date of : 1975 Admit Type: Inpatient Age: 46 Gender: Male Attending MD: Emelia Patterson DO Procedure: Upper GI endoscopy Providers: Emelia Patterson DO Referring MD: Min Isaac, Fran Hernandez MD Indications: Melena Medicines: General Anesthesia Complications: No immediate complications. Estimated Blood Loss: Estimated blood loss: none. Procedure: Pre-Anesthesia Assessment: - Prior to the procedure, a History and Physical was performed, and patient medications, allergies and sensitivities were reviewed. The patient's tolerance of previous anesthesia was reviewed. - The risks and benefits of the procedure and the sedation options and risks were discussed with the patient. All questions were answered and informed consent was obtained. - Patient identification and proposed procedure were verified prior to the procedure by the physician and the nurse. The procedure was verified in the pre-procedure area in the procedure room. - Mental Status Examination: alert and oriented. Airway Examination: normal oropharyngeal airway and neck mobility. Respiratory Examination: clear to auscultation. CV Examination: tachycardia noted. Abdominal Examination: bowel sounds present, abdomen soft and non-tender, no masses or organomegaly noted. - ASA Grade Assessment: E - Emergency. After obtaining informed consent, the endoscope was passed under direct vision. Throughout the procedure, the patient's blood pressure, pulse, and oxygen saturations were monitored continuously. The Endoscope was introduced through the mouth, and advanced to the second part of duodenum. The upper GI endoscopy was accomplished without difficulty. The patient tolerated the procedure well. Findings: Red blood was found in the entire esophagus. Flushed and suctioned. No large esophageal varices. No sings of bleeding from esophageal varices. Blood retrograde from the stomach. There is esopghagitis at the GE junction. Large clots in the cardia and susoected underlying gastric varices. Varices with clot were found in the cardia. Suspect this is the cause of patient's massive GI bleed. The examined duodenum was normal. Impression: - Red blood in the esophagus. Flushed and suctioned. Blood was retrograde from the stomach and not originating in the esophagus. No bleeding esophageal varices. - Gastric varices, oozing blood. - Normal examined duodenum. - No specimens collected. Recommendation: - Transfer to tertiary care site with IR for emergent TIPS. - FFP and platelets to be infused. Patient already received 4 units of PRBCs. - Octreotide gtt infusing. - Keep patient sedated and intubated. Emelia Patterson D.O. Emelia Patterson, 09/13/2021 9:24:14 AM This report has been signed electronically. Note Initiated On: 09/13/2021 8:18 AM Number of Addenda: 0 I attest to the content of the Intraoperative Record and orders documented therein, exceptions below {[id number]}
[2021-09-13 09:25] LABS: iSTAT Hemoglobin 12.2 g/dl (14.0-18.0)
--- NOTE | 2021-09-13 10:47 | Anesthesiology Progress Note ---
Date of Service September 13, 2021 Anesthesia Post Procedure Vital Signs Vital Signs: Temp Pulse Resp BP Pulse Ox 09/13/21 10:09 34.8 C L 114 H 24 103/43 L 96 09/13/21 09:45 117 H 24 99 09/13/21 09:40 117 H 24 123/75 100 09/13/21 09:35 117 H 24 127/75 100 09/13/21 09:30 113 H 24 128/75 100 09/13/21 09:27 112 H 24 100 09/13/21 08:30 35.1 C L 107 H 31 H 117/74 99 09/13/21 08:25 35.0 C L 107 H 29 H 99 09/13/21 08:22 35.0 C L 107 H 24 120/61 99 09/13/21 08:20 35.0 C L 108 H 28 H 99 09/13/21 08:17 35.0 C L 108 H 100 09/13/21 07:35 34.5 C L 104 H 26 H 143/83 H 97 09/13/21 07:30 34.5 C L 106 H 29 H 131/81 98 09/13/21 07:25 34.5 C L 104 H 30 H 124/79 99 09/13/21 07:20 34.5 C L 102 H 30 H 116/75 99 09/13/21 07:15 34.6 C L 99 H 31 H 104/58 L 99 09/13/21 07:10 34.6 C L 99 H 29 H 91/44 L 98 09/13/21 07:05 34.5 C L 98 H 30 H 88/44 L 99 09/13/21 07:00 34.6 C L 99 H 29 H 89/44 L 99 09/13/21 06:55 34.6 C L 100 H 29 H 88/45 L 99 09/13/21 06:54 99 H 24 96/51 L 98 09/13/21 06:50 34.5 C L 100 H 27 H 96/51 L 98 09/13/21 06:45 34.5 C L 100 H 25 H 90/46 L 97 09/13/21 06:40 34.4 C L 98 H 26 H 97/53 L 99 09/13/21 06:35 34.4 C L 99 H 28 H 88/41 L 100 09/13/21 06:31 34.3 C L 99 H 24 79/50 L 100 09/13/21 06:30 34.3 C L 99 H 25 H 79/50 L 100 09/13/21 06:25 34.2 C L 99 H 26 H 78/51 L 100 09/13/21 06:20 34.2 C L 99 H 25 H 82/43 L 100 09/13/21 06:15 34.1 C L 100 H 25 H 81/39 L 100 09/13/21 06:12 34.1 C L 101 H 25 H 75/43 L 100 09/13/21 06:10 34.1 C L 101 H 25 H 83/49 L 100 09/13/21 06:05 34.0 C L 102 H 23 88/49 L 99 09/13/21 06:01 34.0 C L 100 H 20 96/46 L 99 09/13/21 05:55 34.1 C L 96 H 20 96/56 L 97 09/13/21 05:50 34.1 C L 96 H 20 113/67 96 09/13/21 05:45 34.1 C L 96 H 18 98/45 L 93 09/13/21 05:40 94 H 20 93/53 L 96 09/13/21 05:37 93 H 24 76/35 L 99 09/13/21 05:35 93 H 23 76/35 L 99 09/13/21 05:34 93 H 25 H 73/41 L 94 09/13/21 05:06 96 H 30 H 94 09/13/21 05:01 98 H 28 H 84/39 L 94 09/13/21 04:55 34.9 C L 97 H 31 H 83/32 L 94 09/13/21 04:53 100 H 36 H 78/45 L 94 09/13/21 04:45 98 H 34 H 69/37 L 93 09/13/21 04:40 96 H 28 H 73/34 L 91 09/13/21 04:36 95 H 31 H 63/37 L 93 09/13/21 04:31 99 H 26 H 55/35 L 95 09/13/21 04:21 34.9 C L 92 H 33 H 51/40 L 90 Transfer of Care Handoff Completed per policy Notes Mental Status: see notes below Patient Amnestic to Procedure: Yes Nausea / Vomiting: adequately controlled Pain: see Notes below Airway Patency, RR, SpO2: see Notes below Hydration State: see Notes below Anesthetic Complications: no major complications apparent Notes: pt intubated and sedated.
[2021-09-13] MEDS ORDERED: PANTOprazole 40 MG in SYRINGE 0 ML IV SCH (11:00)
--- NOTE | 2021-09-13 11:53 | Communication Note ---
Date of Service: September 13, 2021 Notified/Updated: Ezequiel Crouch, Biological Father, Lives in [facility] [phone] Patient has a hx of: HTN not taking medication Hx of heavy alcohol use Hx Heavy tobacco use Social Hx: Legally . 1 son 16 years old. Biological Mother, Karlie Avendaño, cell [phone], Lives in [facility], was updated of condition by father. Father reports patient has been residing in [place] for few months. Coding Level of Care Code None
[2021-09-13 12:18] LABS: iSTAT Potassium 3.9 mmol/L (3.3-5.0); iSTAT Sodium 122 mmol/L (135-144)
[2021-09-13 12:19] LABS: iSTAT Arterial Blood Gas HCO3 18 meg/L (19-24); iSTAT Arterial Blood Gas pH 7.27 (7.35-7.45); iSTAT Arterial Blood Gas pO2 103 mmHg (80-95); iSTAT Carbon Dioxide 19 mmol/L (24-31); iSTAT Hematocrit 33 % (42-52); iSTAT Hemoglobin 11.2 g/dl (14.0-18.0)
[2021-09-13 12:20] LABS: iSTAT Arterial Blood Gas pCO2 39 mmHg (35-46)
--- NOTE | 2021-09-13 12:41 | Electrocardiogram Report ---
Test Reason : Blood Pressure : / mmHG Vent. Rate : 096 BPM Atrial Rate : 096 BPM P-R Int : 146 ms QRS Dur : 102 ms QT Int : 448 ms P-R-T Axes : 061 066 235 degrees QTc Int : 565 ms Normal sinus rhythm Prolonged QT Abnormal ECG No previous ECGs available Confirmed by Bruno Jauregui ([id number]) on 09/13/2021 12:40:49 PM Referred By: REFERRED SELF Confirmed By:Bruno Jauregui
[2021-09-13] MEDS ORDERED: SUCCINYLCHOLINE CHLORIDE 20 MG/ML 10 ML VIAL IV ONE (13:09)
[2021-09-13] MEDS ORDERED: ETOMIDATE 2 MG/ML 20 ML VIAL IV ONE (13:09)
--- NOTE | 2021-09-13 13:24 | Discharge Summary ---
Date of Service September 13, 2021 Admission HPI Per Admitting Provider melena Principal Diagnosis Gastric variceal bleed Discharge Exam Did not see patient before he was transferred Discharge Data Consultations 09/13/21 06:46 ED Decision to Admit Stat 09/13/21 06:47 Consult Gastroenterology Stat 09/13/21 07:49 Consult Anesthesiology Stat 09/13/21 08:18 Consult Client Finance Analyst Routine 09/13/21 11:45 Burn CD for patient Stat Procedures Performed Operation Date: 09/13/21 13:20 Actual Procedures p Esophagogastroduodenoscopy(Not Applicable) - Emelia Patterson, Operation Date: 09/13/21 17:25 <No data on this case meets the specified criteria> Ordered Studies 09/13/21 04:45 CT head/brain wo con Urgent 09/13/21 04:47 CT abd pelvis IV con only Urgent CT chest diagnostic w con Urgent Hospital Course (1) Alcoholic liver failure: Alcoholic liver failure/coagulopathy/shock- Intubated for airway protection Admit to intensive care unit Consult horse breaker Meld score 35 Admit to stabilize patient and then transfer to tertiary care facility (2) Shock circulatory: Start patient on Levophed Massive transfusion needed -resuscitate with multiple units of PRBCs and FFP and platelets (3) Coagulopathy: INR 3.9 As above Reverse with FFP and vitamin K (4) GI bleed: GI bleed/anemia- Hemoglobin 9.8 upon admission, likely significantly lower H&H every 6 hours Gastroenterology coming in to acutely scope the patient Continue Protonix drip Continue octreotide drip (5) Anemia: As above (6) Thrombocytopenia: Will transfuse platelets after resuscitation with PRBCs and FFP (7) Hyponatremia: Sodium 120 Likely at least in part beer [place] Repeat after resuscitation (8) Lactic acidosis: Lactic acid 16.1 Repeat after resuscitation (9) Elevated troponin I level: Troponin 0.33 Likely type II supply demand mismatch Follow serially (10) Lab test negative for COVID-19 virus: Negative for COVID-19 (11) Admitted to intensive care unit: Client Finance Analyst consulted, seen in the ED Total Time Total Time Spent Total Time Spent (In Minutes): 35 Discharge Plan Discharge Items Patient Disposition: Transfer Acute Care Hospital Reason For Visit: GI BLEED, ALCOHOLIC LIVER FAILURE Discharge Diagnosis: Variceal bleed Activity: Resume your previous activity Non-emergency contact: Primary Care Provider Call non-emergency contact if: your symptoms worsen Follow-up/Referrals: PCP,NO [Primary Care Provider] - Diet: Nothing by Mouth Addtl Attending Provider Instructions: Transfered to [facility]. Pending Studies at Discharge: No Stand-Alone Forms: My [employer] Skilled Items Patient informed of condition?: No DNR: No Discharge Level of Care: Skilled Communicable Disease: No Discharge Prognosis: Deteriorating Lines: Peripheral IV Urinary Catheter: Yes Medications and DC Order Discharge Orders: Discharge Order (Routine); Ordered 09/13/21 Ordered By: Wei Figueroa Admission Data Admit Date/Time: 09/13/21 06:29 Attending Provider: Wei Figueroa Admit Provider: Min Isaac Primary Care Provider: PCP,NO Other Providers: Fran Hernandez ; Nancy Ibarra ; Joel Schaefer ; Wei Figueroa Coding Level of Care Code None Diagnoses Alcoholic liver failure K70.40 Shock circulatory R57.9 Coagulopathy D68.9 GI bleed K92.2 Anemia D64.9 Thrombocytopenia D69.6 Hyponatremia E87.1 Lactic acidosis E87.2 Elevated troponin I level R77.8 Lab test negative for COVID-19 virus Z20.822 Admitted to intensive care unit Z78.9
[2021-09-14] MEDS ORDERED: cefTRIAXone SODIUM 2,000 MG in DEXTROSE 5% 50 ML IV SCH (09:00)
[2021-09-19] MEDS ORDERED: FLUARIX QUADRIVALENT 0.5 ML SYR IM ONE (09:00)
== END 2021-09-13 13:10 | disposition short-term general hospital (02) | DRG 326 ==
LOC: ED 04:17 → 1E 06:29 → SUATTDRO 06:29 → 1E 07:15